=== PATIENT | female | born 1950 | race Caucasian/White ===

== ENCOUNTER 2018-05-09 00:42 | Emergency (ER) | payer MEDICARE, OTHER, SELFPAY ==
[2018-05-09 00:47] VITALS: BP 136/85; PULSE 70; RESP 20; TEMP 36.5; O2SAT 97
--- NOTE | 2018-05-09 00:53 | W.ED.GENAD ---
Discharge Plan Disposition Patient Disposition: HOME Condition: Good Discharge Details Chief Complaint: RashLesion Clinical Impression: Hives of unknown origin Primary Care Provider: Mala Morrison ED Provider: Chapito Jacques [place] Meds and New Rx's Prescriptions: New prednisone 20 mg tablet 40 mg PO DAILY Qty: 8 RF: 0 ranitidine HCl [Heartburn Relief (ranitidine)] 150 mg tablet 150 mg PO BID Qty: 20 RF: 0 Continue vitamin E 400 UNIT capsule 400 unit PO DAILY RF: 0 [id number] [Excedrin Extra Strength] 1 EACH tablet 1 ea PO HS PRNRF: 0 acetaminophen 650 MG tablet 2 tab PO BID PRNRF: 0 omeprazole 20 MG capsule,delayed release(DR/EC) 1 cap PO DAILY Qty: 90 RF: 12 cholecalciferol (vitamin D3) [Vitamin D3] 400 UNIT capsule 400 unit PO DAILY RF: 0 nystatin 60 GM powder 4 gm Topical BID Qty: 60 RF: 12 levothyroxine 50 MCG tablet 50 mcg PO DAILY Qty: 90 RF: 12 montelukast 10 MG tablet 10 mg PO DAILY Qty: 90 RF: 12 tramadol [Ultram] 50 MG tablet 50 mg PO BID PRNQty: 150 RF: 2 diphenhydramine-zinc acetate [Benadryl Extra Strength] 2-0.1 % Cream 1 appful Topical PRN PRNRF: 0 Changed diphenhydramine HCl [Benadryl] 25 mg Capsule 50 mg PO Q6H PRN PRNQty: 0 RF: 0 Discharge Instructions Instructions: Prednisone (By mouth), Urticaria (ED) Additional Instructions: Continue to use Benadryl 50 mg every 6 hours for itching. Also start Zantac 150 mg twice a day. Prednisone once a day. Follow-up with primary care next week if not better. Return to ED for fever, difficulty breathing, swallowing throat swelling, other concerns Referrals: Mala Morrison [place], [place] [Primary Care Provider] - Medical Decision Making Generalized rash that appears to be consistent with hives. No oral pharyngeal or airway involvement. No definite known changes other than possibly a water softener in her home. There is no evidence of viral syndrome. Vital signs are normal. She is already taking Benadryl which we will continue. We will add prednisone and Zantac and have her follow-up with primary care next week. Return to ED for fever, difficulty breathing, throat swelling or difficulty swallowing, other concerns HPI General Mode of arrival: ambulatory. Date/Time Provider Initiated Documentation: 05/09/18 00:53. Limitations to Documentation: no limitations. Information obtained by: patient. HPI Narrative: Patient presents to ED with generalized rash that is raised and itchy. There are no new exposures other than the addition of a water softener to her home. Rash started about 2 days ago. She has been using Benadryl. It helped for a little while. However, the rash continues to spread after initially starting on the arms. They are not painful. They are very pruritic. She otherwise feels well. There has been no fever or chills. There is no throat swelling or discomfort. There is no difficulty breathing. There is no nausea, vomiting, abdominal pain. Related Data Home Medications Medication Instructions Recorded Confirmed [id number] 1 ea PO HS PRN 10/16/12 05/09/18 [Excedrin Extra Strength] vitamin E 400 unit PO DAILY 10/16/12 05/09/18 acetaminophen 2 tab PO BID PRN 03/14/14 05/09/18 omeprazole 1 cap PO DAILY #90 tab-cap 03/19/17 05/09/18 cholecalciferol (vitamin D3) 400 unit PO DAILY 07/31/17 05/09/18 [Vitamin D3] nystatin 4 gm TOPICAL BID #60 gm 10/21/17 05/09/18 levothyroxine 50 mcg PO DAILY #90 tab-cap 10/30/17 05/09/18 montelukast 10 mg PO DAILY #90 tab-cap 10/30/17 05/09/18 tramadol [Ultram] 50 mg PO BID PRN #150 tab 02/23/18 05/09/18 diphenhydramine HCl [Benadryl] 50 mg PO Q6H PRN PRN #0 cap 05/09/18 05/09/18 diphenhydramine-zinc acetate 1 appful TOPICAL PRN PRN 05/09/18 05/09/18 [Benadryl Extra Strength] prednisone 40 mg PO DAILY #8 tab 05/09/18 ranitidine HCl [Heartburn Relief 150 mg PO BID #20 tab 05/09/18 (ranitidine)] Previous Rx's Medication Instructions Recorded nystatin 4 gm TOPICAL BID #60 gm 10/21/17 levothyroxine 50 mcg PO DAILY #90 tab-cap 10/30/17 montelukast 10 mg PO DAILY #90 tab-cap 10/30/17 diphenhydramine HCl [Benadryl] 50 mg PO Q6H PRN PRN #0 cap 05/09/18 prednisone 40 mg PO DAILY #8 tab 05/09/18 ranitidine HCl [Heartburn Relief 150 mg PO BID #20 tab 05/09/18 (ranitidine)] Allergies Allergy/AdvReac Type Severity Reaction Status Date / Time Estrogens Allergy Intermediate swollen, Unverified 05/09/18 00:49 itchy vulva house dust Allergy Intermediate SNEEZING, Unverified 05/09/18 00:49 WATERY EYES Sulfa (Sulfonamide Allergy Intermediate HIVES, Unverified 05/09/18 00:49 Antibiotics) ITCHING trimethoprim Allergy Intermediate Unverified 05/09/18 00:49 nickel Allergy Unknown SWELLING,IT Unverified 05/09/18 00:49 PARAS celecoxib [From Celebrex] AdvReac Intermediate headaches Unverified 05/09/18 00:49 oxycodone AdvReac Intermediate Headache Unverified 05/09/18 00:49 influenza virus vaccine, AdvReac body Unverified 05/09/18 00:49 specific aches, fatigue pollen AdvReac Uncoded 05/09/18 00:49 General Stated Complaint: RashLesion MILAGROS: 3 Review of Systems Constitutional Denies chills, Denies fever(s) and Denies malaise Cardiovascular Denies chest pain, Denies pedal edema and Denies dyspnea Respiratory Denies cough and Denies dyspnea Gastrointestinal Denies abdominal pain, Denies diarrhea, Denies nausea and Denies vomiting Integumentary/Breasts Reports rash PFSH Family History Mother Cerebrovascular accident Father Diabetes Personal history of malignant neoplasm Heart disease Hyperlipidemia Cerebrovascular accident Brother No problems noted. Grandfather Personal history of malignant neoplasm Grandfather No problems noted. Grandmother Personal history of malignant neoplasm Grandmother No problems noted. Son No problems noted. Daughter No problems noted. Medical History Hypothyroid (Chronic) Social History Smoking/Tobacco Use Status: Former Tobacco Use Surgical History Bladder Surgery (~1989) EGD - MAC (11/23/12) Extraction of cataract Hysterectomy, Laproscopic (~1990) Nasal septoplasty Tooth extraction Vein Stripping Exam Const General: cooperative and no acute distress Orientation: alert and oriented x3 HENDE Head: normocephalic and atraumatic Mouth: oral mucosae normal and oropharynx normal Eyes Conjunctivae: conjunctivae normal Resp Effort & Inspection: normal respiratory effort Auscultation: clear to auscultation bilaterally Cardio Rate: regular rate Rhythm: regular rhythm Heart Sounds: S1 normal and S2 normal Skin Rashes: rashes noted (Generalized maculopapular erythematous rash prominent on upper extremities and trunk less so on legs. Also involves neck and scalp. Blanches easily.) Neuro General: alert, oriented x3, no focal motor deficits and CN's II-XI intact bilaterally Extrem General: no clubbing, cyanosis or edema Course Vital Signs Temperature 97.7 F 05/09/18 00:47 Pulse 70 05/09/18 00:47 Respiratory Rate 20 05/09/18 00:47 Blood Pressure 136/85 05/09/18 00:47 Pulse Oximetry 97 05/09/18 00:47 Temperature 97.7 F 05/09/18 00:47 Temperature Source Temporal Artery Scan 05/09/18 00:47 Pulse 70 05/09/18 00:47 Respiratory Rate 20 05/09/18 00:47 Respiratory Effort Non-Labored 05/09/18 00:51 Blood Pressure 136/85 05/09/18 00:47 Pulse Oximetry 97 05/09/18 00:47 Oxygen Delivery Method Room Air 05/09/18 00:47 Oxygen Flow Rate 0 05/09/18 00:47 Pain Level 10 05/09/18 00:47
--- NOTE | 2018-05-09 01:05 | ED.GENADUL_ITS ---
Discharge Plan Disposition Patient Disposition: HOME Condition: Good Discharge Details Chief Complaint: RashLesion Clinical Impression: Hives of unknown origin Primary Care Provider: Mala Morrison ED Provider: Chapito Jacques [place] Meds and New Rx's Prescriptions: New prednisone 20 mg tablet 40 mg PO DAILY Qty: 8 RF: 0 ranitidine HCl [Heartburn Relief (ranitidine)] 150 mg tablet 150 mg PO BID Qty: 20 RF: 0 Continue vitamin E 400 UNIT capsule 400 unit PO DAILY RF: 0 [id number] [Excedrin Extra Strength] 1 EACH tablet 1 ea PO HS PRNRF: 0 acetaminophen 650 MG tablet 2 tab PO BID PRNRF: 0 omeprazole 20 MG capsule,delayed release(DR/EC) 1 cap PO DAILY Qty: 90 RF: 12 cholecalciferol (vitamin D3) [Vitamin D3] 400 UNIT capsule 400 unit PO DAILY RF: 0 nystatin 60 GM powder 4 gm Topical BID Qty: 60 RF: 12 levothyroxine 50 MCG tablet 50 mcg PO DAILY Qty: 90 RF: 12 montelukast 10 MG tablet 10 mg PO DAILY Qty: 90 RF: 12 tramadol [Ultram] 50 MG tablet 50 mg PO BID PRNQty: 150 RF: 2 diphenhydramine-zinc acetate [Benadryl Extra Strength] 2-0.1 % Cream 1 appful Topical PRN PRNRF: 0 Changed diphenhydramine HCl [Benadryl] 25 mg Capsule 50 mg PO Q6H PRN PRNQty: 0 RF: 0 Discharge Instructions Instructions: Prednisone (By mouth), Urticaria (ED) Additional Instructions: Continue to use Benadryl 50 mg every 6 hours for itching. Also start Zantac 150 mg twice a day. Prednisone once a day. Follow-up with primary care next week if not better. Return to ED for fever, difficulty breathing, swallowing throat swelling, other concerns Referrals: Mala Morrison MD, [place] [Primary Care Provider] - Medical Decision Making Generalized rash that appears to be consistent with hives. No oral pharyngeal or airway involvement. No definite known changes other than possibly a water softener in her home. There is no evidence of viral syndrome. Vital signs are normal. She is already taking Benadryl which we will continue. We will add prednisone and Zantac and have her follow-up with primary care next week. Return to ED for fever, difficulty breathing, throat swelling or difficulty swallowing, other concerns HPI General Mode of arrival: ambulatory . Date/Time Provider Initiated Documentation: 05/09/18 00:53 . Limitations to Documentation: no limitations . Information obtained by: patient . HPI Narrative: Patient presents to ED with generalized rash that is raised and itchy. There are no new exposures other than the addition of a water softener to her home. Rash started about 2 days ago. She has been using Benadryl. It helped for a little while. However, the rash continues to spread after initially starting on the arms. They are not painful. They are very pruritic. She otherwise feels well. There has been no fever or chills. There is no throat swelling or discomfort. There is no difficulty breathing. There is no nausea, vomiting, abdominal pain. Related Data Home Medications Medication Instructions Recorded Confirmed [id number] 1 ea PO HS PRN 10/16/12 05/09/18 [Excedrin Extra Strength] vitamin E 400 unit PO DAILY 10/16/12 05/09/18 acetaminophen 2 tab PO BID PRN 03/14/14 05/09/18 omeprazole 1 cap PO DAILY #90 tab-cap 03/19/17 05/09/18 cholecalciferol (vitamin D3) 400 unit PO DAILY 07/31/17 05/09/18 [Vitamin D3] nystatin 4 gm TOPICAL BID #60 gm 10/21/17 05/09/18 levothyroxine 50 mcg PO DAILY #90 tab-cap 10/30/17 05/09/18 montelukast 10 mg PO DAILY #90 tab-cap 10/30/17 05/09/18 tramadol [Ultram] 50 mg PO BID PRN #150 tab 02/23/18 05/09/18 diphenhydramine HCl [Benadryl] 50 mg PO Q6H PRN PRN #0 cap 05/09/18 05/09/18 diphenhydramine-zinc acetate 1 appful TOPICAL PRN PRN 05/09/18 05/09/18 [Benadryl Extra Strength] prednisone 40 mg PO DAILY #8 tab 05/09/18 ranitidine HCl [Heartburn Relief 150 mg PO BID #20 tab 05/09/18 (ranitidine)] Previous Rx's Medication Instructions Recorded nystatin 4 gm TOPICAL BID #60 gm 10/21/17 levothyroxine 50 mcg PO DAILY #90 tab-cap 10/30/17 montelukast 10 mg PO DAILY #90 tab-cap 10/30/17 diphenhydramine HCl [Benadryl] 50 mg PO Q6H PRN PRN #0 cap 05/09/18 prednisone 40 mg PO DAILY #8 tab 05/09/18 ranitidine HCl [Heartburn Relief 150 mg PO BID #20 tab 05/09/18 (ranitidine)] Allergies Allergy/AdvReac Type Severity Reaction Status Date / Time Estrogens Allergy Intermediate swollen, Unverified 05/09/18 00:49 itchy vulva house dust Allergy Intermediate SNEEZING, Unverified 05/09/18 00:49 WATERY EYES Sulfa (Sulfonamide Allergy Intermediate HIVES, Unverified 05/09/18 00:49 Antibiotics) ITCHING trimethoprim Allergy Intermediate Unverified 05/09/18 00:49 nickel Allergy Unknown SWELLING,IT Unverified 05/09/18 00:49 PARAS celecoxib [From Celebrex] AdvReac Intermediate headaches Unverified 05/09/18 00: 49 oxycodone AdvReac Intermediate Headache Unverified 05/09/18 00:49 influenza virus vaccine, AdvReac body Unverified 05/09/18 00:49 specific aches, fatigue pollen AdvReac Uncoded 05/09/18 00:49 General Stated Complaint: RashLesion MILAGROS: 3 Review of Systems Constitutional Denies chills, Denies fever(s) and Denies malaise Cardiovascular Denies chest pain, Denies pedal edema and Denies dyspnea Respiratory Denies cough and Denies dyspnea Gastrointestinal Denies abdominal pain, Denies diarrhea, Denies nausea and Denies vomiting Integumentary/Breasts Reports rash PFSH Family History Mother Cerebrovascular accident Father Diabetes Personal history of malignant neoplasm Heart disease Hyperlipidemia Cerebrovascular accident Brother No problems noted. Grandfather Personal history of malignant neoplasm Grandfather No problems noted. Grandmother Personal history of malignant neoplasm Grandmother No problems noted. Son No problems noted. Daughter No problems noted. Medical History Hypothyroid (Chronic) Social History Smoking/Tobacco Use Status: Former Tobacco Use Surgical History Bladder Surgery (~1989) EGD - MAC (11/23/12) Extraction of cataract Hysterectomy, Laproscopic (~1990) Nasal septoplasty Tooth extraction Vein Stripping Exam Const General: cooperative and no acute distress Orientation: alert and oriented x3 HENSD Head: normocephalic and atraumatic Mouth: oral mucosae normal and oropharynx normal Eyes Conjunctivae: conjunctivae normal Resp Effort & Inspection: normal respiratory effort Auscultation: clear to auscultation bilaterally Cardio Rate: regular rate Rhythm: regular rhythm Heart Sounds: S1 normal and S2 normal Skin Rashes: rashes noted (Generalized maculopapular erythematous rash prominent on upper extremities and trunk less so on legs. Also involves neck and scalp. Blanches easily.) Neuro General: alert, oriented x3, no focal motor deficits and CN's II-XI intact bilaterally Extrem General: no clubbing, cyanosis or edema Course Vital Signs Temperature 97.7 F 05/09/18 00:47 Pulse 70 05/09/18 00:47 Respiratory Rate 20 05/09/18 00:47 Blood Pressure 136/85 05/09/18 00:47 Pulse Oximetry 97 05/09/18 00:47 Temperature 97.7 F 05/09/18 00:47 Temperature Source Temporal Artery Scan 05/09/18 00:47 Pulse 70 05/09/18 00:47 Respiratory Rate 20 05/09/18 00:47 Respiratory Effort Non-Labored 05/09/18 00:51 Blood Pressure 136/85 05/09/18 00:47 Pulse Oximetry 97 05/09/18 00:47 Oxygen Delivery Method Room Air 05/09/18 00:47 Oxygen Flow Rate 0 05/09/18 00:47 Pain Level 10 05/09/18 00:47
[2018-05-09] MEDS: predniSONE 20 MG TAB 60 MG PO (01:15)
[2018-05-09 01:21] VITALS: BP 136/85; PULSE 70; RESP 20; TEMP 36.5; O2SAT 97
== END 2018-05-09 01:25 | disposition home or self-care (01) ==
LOC: ER 01:28
PROVIDERS: Emergency Provider Emergency Medicine; PCP Family Medicine
DX: L50.9 Urticaria, unspecified (principal)
CPT/HCPCS: 99283; J7512

== ENCOUNTER 2018-05-27 07:42 | Outpatient (CLI) | payer MEDICARE, OTHER, SELFPAY ==
[2018-05-27 13:26] LABS: ALT 19 U/L (12-78); AST 13 U/L (15-37); Albumin 3.1 g/dL (3.4-5.0); Alkaline Phosphatase 104 U/L (46-116); Anion Gap 8.1 mmol/L (3-11); BUN 12 mg/dL (7-18); Bilirubin, Total 0.5 mg/dL (0.2-1.0); CO2 28.9 mmol/L (21.0-32.0); CREATININE 0.91 mg/dL (0.55-1.02); Calcium 8.8 mg/dL (8.5-10.1); Chloride 106 mmol/L (98-107); Cholesterol 249 mg/dL (50-200); Glucose 96 mg/dL (70-100); HDL Cholesterol 71 mg/dL (40-60); LDL CHOLESTEROL 162 mg/dL (<100); Potassium 4.2 mmol/L (3.5-5.1); Sodium 143 mmol/L (136-145); Total Protein 6.1 g/dL (6.4-8.2); Triglyceride 91 mg/dL (30-150)
[2018-05-27 13:49] LABS: TSH (W/Ref FT4) 1.55 uIU/mL (0.358-3.74)
== END 2018-05-27 08:02 ==
PROVIDERS: PCP Family Medicine; Visit Provider Family Medicine
DX: E78.5 Hyperlipidemia, unspecified (principal); E03.9 Hypothyroidism, unspecified
CPT/HCPCS: 36415; 80053; 80061; 83721; 84443

== ENCOUNTER → 2019-04-05 09:34 | Outpatient (BNVA) | payer MEDICARE, OTHER, SELFPAY | PROVIDERS: PCP Family Medicine; Referring Provider Family Medicine; Visit Provider Student in an Organized Health Care Education/Training Program | DX: M65.312 Trigger thumb, left thumb (principal); M65.311 Trigger thumb, right thumb | CPT/HCPCS: 99203; 99214 ==

== ENCOUNTER 2019-04-16 14:52 | Outpatient (CLI) | payer MEDICARE, OTHER, SELFPAY ==
[2019-04-16 16:35] LABS: TSH (W/Ref FT4) 1.01 uIU/mL (0.36-3.74)
== END 2019-04-16 15:12 ==
PROVIDERS: PCP Family Medicine; Visit Provider Family Medicine
DX: E03.9 Hypothyroidism, unspecified (principal)
CPT/HCPCS: 36415; 84443

== ENCOUNTER 2019-04-21 06:29 | Day surgery (SDC) | payer MEDICARE, OTHER, SELFPAY ==
[2019-04-21 06:37] VITALS: BP 105/60; PULSE 66; RESP 16; TEMP 36.1; O2SAT 95
--- NOTE | 2019-04-21 07:15 | PDOC.DSDIS_ITS ---
Discharge Plan Disposition Patient Disposition: HOME Condition: Good Discharge Details Reason For Visit: Left Trigger Thumb Attending Provider: Ga Marr Primary Care Provider: Mala Morrison Home Meds and New Rx's Prescriptions: New ibuprofen 600 mg tablet 600 mg PO TID PRNQty: 30 RF: 3 Continued levothyroxine 50 mcg tablet 50 mcg PO DAILY Qty: 90 RF: 12 montelukast [Singulair] 10 mg tablet 10 mg PO DAILY Qty: 90 RF: 12 omeprazole 20 mg capsule,delayed release(DR/EC) 20 mg PO DAILY Qty: 90 RF: 6 tramadol [Ultram] 50 mg tablet 50 mg PO BID MDD 2 PRN (Reason: pain) Qty: 150 RF: 5 cyanocobalamin (vitamin B-12) [Vitamin B-12] 500 mcg tablet 500 mcg PO DAILY RF: 0 vitamin E 400 UNIT capsule 400 unit PO DAILY RF: 0 Excedrin Extra Strength 1 EACH tablet 1 ea PO HS PRNRF: 0 acetaminophen 650 MG tablet 2 tab PO BID PRNRF: 0 cholecalciferol (vitamin D3) [Vitamin D3] 400 UNIT capsule 400 unit PO DAILY RF: 0 nystatin 100,000 unit/gram powder 1 applic Topical BID PRN (Reason: rash) Qty: 30 RF: 2 diphenhydramine HCl [Benadryl] 25 mg Capsule 50 mg PO Q6H PRN PRNQty: 0 RF: 0 Discharge Instructions Stand Alone Forms: Justa Cramer Finger Release Referrals: Ga Marr MD [ [facility] STAFF PHYSICIAN] - Activity:: Elevate Remove Dressings/Wound Care:: 48 hours Shower/Bathe:: 48 hours Diet:: As Tolerated Discharge Orders Discharge Orders: Discharge Order (Routine); Ordered 04/21/19 Ordered By: Ga Marr DS: Diagnosis Discharge Diagnosis (1) Trigger thumb of left hand: Status: Acute
[2019-04-21] MEDS: Sodium Bicarbonate 50 MEQ/50 ML VIAL (07:39)
[2019-04-21] MEDS: Lidocaine 1% Pres-Free 5 ML VIAL (07:39)
[2019-04-21] MEDS: Bupivacaine 0.5% Pres-Free 30 ML VIAL (07:51)
--- NOTE | 2019-04-22 21:29 | W.PM.OP ---
Date of service: 04/21/19 Time of Service: 08:29 Operative Note Operative Note DATE OF PROCEDURE: 04/21/19 PRE-OP DIAGNOSIS: Left Trigger Thumb POST-OP DIAGNOSIS: same PROCEDURE: Trigger Finger Release - left trigger thumb SURGEON: Ga Marr ANESTHESIA: local ESTIMATED BLOOD LOSS: 5 PATHOLOGY: none sent COMPLICATIONS: None Patient was transported to: same day Patient's condition: stable Indications: I have seen Annie in clinic for symptoms of a trigger finger. The catching, clicking, locking, and pain limited function. The diagnosis of trigger finger was evident. The symptoms had not responded to conservative measures. I discussed trigger finger release with the patient. I reviewed the risks of the procedure to include, but not limited to, bleeding, infection, pain, stiffness, incomplete release, damage to nerves or vessels, continued catching, recurrence. Despite these risks, the patient elected to proceed. Findings: There was a tightened A1 kendall which was released. The flexor tendons were inspected and the patient was able to move the finger without any catching, clicking, or locking. Procedure Description: Annie was greeted in the preoperative holding area where the correct side was identified and marked. The consent was reviewed with the patient and signed. All questions were answered. Annie was taken back to the operating room. The patient was placed into the supine position on the operating room table with the LEFT arm on an arm board. All bony prominences were well padded. No prophylactic antibiotics were administered since this was a clean, elective hand surgical case. The LEFT arm was then prepped with Chloraprep and draped in a standard fashion with stockinette and extremity drape. A timeout to confirm correct identity, side and site, procedure, allergies, anesthesia, and medical concerns was performed. The surgical site was marked as a longitudinal incision directly over the A1 kendall of the involved digit. This was confirmed with palpation during finger flexion. This area, overlying the metacarpal head, was then anesthetized with 1% Lidocaine. The patient tolerated this well and once the anesthetic had setup, the procedure began. A longitudinal incision was made through skin only, approximately 1cm. The deep tissues were dissected bluntly. Once the A1 kendall and flexor tendons were identified the soft tissue including neurovascular structures were retracted medially and laterally. There were no crossing structures over the A1 kendall. The proximal edge of the kendall was identified and the kendall was incised with tenotomy scissors. There was a release of the tendons once this was fully released. The tendons were then removed from the wound and inspected. Excess synovium was resected. The tendons were then returned and the patient was asked to move the finger into deep flexion and back to extension. There was no recreation of the pre-operative symptoms. The hand was then once more inspected for any A0 kendall or area of possible constriction. The wound was then irrigated and the skin was closed with a 4-0 Nylon. This was dressed with gauze and a Conform dressing. The patient tolerated the procedure well and was returned to the Same Day Surgery area in a stable condition suffering no known complication.
== END 2019-04-21 08:30 | disposition home or self-care (01) ==
PROVIDERS: PCP Family Medicine; Visit Provider Student in an Organized Health Care Education/Training Program
PROC: (CPT 26055; principal; 2019-04-21 07:30)
DX: M65.312 Trigger thumb, left thumb (principal)
CPT/HCPCS: 26055

== ENCOUNTER → 2019-04-30 09:03 | Outpatient (BNVA) | payer MEDICARE, OTHER, SELFPAY | PROVIDERS: PCP Family Medicine; Referring Provider Family Medicine; Visit Provider Student in an Organized Health Care Education/Training Program | DX: Z47.89 Encounter for other orthopedic aftercare (principal); M65.311 Trigger thumb, right thumb; M65.312 Trigger thumb, left thumb ==

== ENCOUNTER 2019-05-04 11:47 | Day surgery (SDC) | payer MEDICARE, OTHER, SELFPAY ==
[2019-05-04 11:50] VITALS: BP 132/78; PULSE 64; RESP 16; TEMP 36.5; O2SAT 95
--- NOTE | 2019-05-04 12:25 | W.PM.DSUDISC ---
Discharge Plan Disposition Patient Disposition: HOME Condition: Good Discharge Details Reason For Visit: R Trigger Thumb Attending Provider: Ga Marr Primary Care Provider: Mala Morrison Home Meds and New Rx's Prescriptions: Continued levothyroxine 50 mcg tablet 50 mcg PO DAILY Qty: 90 RF: 12 montelukast [Singulair] 10 mg tablet 10 mg PO DAILY Qty: 90 RF: 12 omeprazole 20 mg capsule,delayed release(DR/EC) 20 mg PO DAILY Qty: 90 RF: 6 cyanocobalamin (vitamin B-12) [Vitamin B-12] 500 mcg tablet 500 mcg PO DAILY RF: 0 tramadol [Ultram] 50 mg tablet 50 mg PO BID MDD 2 PRN (Reason: pain) Qty: 150 RF: 5 vitamin E 400 UNIT capsule 400 unit PO DAILY RF: 0 Excedrin Extra Strength 1 EACH tablet 1 ea PO HS PRNRF: 0 acetaminophen 650 MG tablet 2 tab PO BID PRNRF: 0 cholecalciferol (vitamin D3) [Vitamin D3] 400 UNIT capsule 400 unit PO DAILY RF: 0 nystatin 100,000 unit/gram powder 1 applic Topical BID PRN (Reason: rash) Qty: 30 RF: 2 ibuprofen 600 mg tablet 600 mg PO TID PRNQty: 30 RF: 3 chlorpheniramine maleate 4 mg Tablet BID RF: 0 aspirin [Aspir-81] 81 mg Tablet,Delayed Release (Dr/Ec) RF: 0 cyanocobalamin (vitamin B-12) [Vitamin B-12] 500 mcg Tablet RF: 0 cholecalciferol (vitamin D3) [Vitamin D3] 400 unit Capsule RF: 0 diphenhydramine HCl [Benadryl] 25 mg Capsule 50 mg PO Q6H PRN PRNQty: 0 RF: 0 Discharge Instructions Stand Alone Forms: Annaa Shoaib Finger Release Referrals: Ga Marr MD [ [facility] STAFF PHYSICIAN] - Activity:: Elevate Remove Dressings/Wound Care:: 48 hours Shower/Bathe:: 48 hours Diet:: As Tolerated Discharge Orders Discharge Orders: Discharge Order (Routine); Ordered 05/04/19 Ordered By: Ga Marr DS: Diagnosis Discharge Diagnosis (1) Trigger thumb of right hand: Status: Acute
[2019-05-04] MEDS: Bupivacaine 0.5% Pres-Free 30 ML VIAL (12:56)
[2019-05-04] MEDS: Lidocaine 1% Multi-Dose 50 ML VIAL (12:57)
--- NOTE | 2019-05-04 16:55 | W.PM.OP ---
Date of service: 05/04/19 Time of Service: 10:55 Operative Note Operative Note DATE OF PROCEDURE: 05/04/19 PRE-OP DIAGNOSIS: Right trigger thumb POST-OP DIAGNOSIS: same PROCEDURE: Trigger Finger Release -right thumb SURGEON: Ga Marr ANESTHESIA: local PATHOLOGY: none sent COMPLICATIONS: None Patient was transported to: same day Patient's condition: stable Indications: I have seen Annie in clinic for symptoms of a right trigger thumb. The catching, clicking, locking, and pain limited function. The diagnosis of trigger finger was evident. The symptoms had not responded to conservative measures. I discussed trigger finger release with the patient. I reviewed the risks of the procedure to include, but not limited to, bleeding, infection, pain, stiffness, incomplete release, damage to nerves or vessels, continued catching, recurrence. Despite these risks, the patient elected to proceed. Findings: There was a tightened A1 kendall which was released. The flexor tendons were inspected and the patient was able to move the finger without any catching, clicking, or locking. Procedure Description: Annie was greeted in the preoperative holding area where the correct side was identified and marked. The consent was reviewed with the patient and signed. All questions were answered. Annie was taken back to the operating room. The patient was placed into the supine position on the operating room table with the right arm on an arm board. All bony prominences were well padded. No prophylactic antibiotics were administered since this was a clean, elective hand surgical case. The right arm was then prepped with Chloraprep and draped in a standard fashion with stockinette and extremity drape. A timeout to confirm correct identity, side and site, procedure, allergies, anesthesia, and medical concerns was performed. The surgical site was marked as a longitudinal incision directly over the A1 kendall of the involved digit. This was confirmed with palpation during finger flexion. This area, overlying the metacarpal head, was then anesthetized with 1% Lidocaine. The patient tolerated this well and once the anesthetic had setup, the procedure began. A longitudinal incision was made through skin only, approximately 1cm. The deep tissues were dissected bluntly. Once the A1 kendall and flexor tendons were identified the soft tissue including neurovascular structures were retracted medially and laterally. There were no crossing structures over the A1 kendall. The proximal edge of the kendall was identified and the kendall was incised with tenotomy scissors. There was a release of the tendons once this was fully released. The tendons were then removed from the wound and inspected. Excess synovium was resected. The tendons were then returned and the patient was asked to move the finger into deep flexion and back to extension. There was no recreation of the pre-operative symptoms. The hand was then once more inspected for any A0 kendall or area of possible constriction. The wound was then irrigated and the skin was closed with a 4-0 Nylon. This was dressed with gauze and a Conform dressing. The patient tolerated the procedure well and was returned to the Same Day Surgery area in a stable condition suffering no known complication.
== END 2019-05-04 13:19 | disposition home or self-care (01) ==
PROVIDERS: PCP Family Medicine; Visit Provider Student in an Organized Health Care Education/Training Program
PROC: (CPT 26055; principal; 2019-05-04 14:00)
DX: M65.311 Trigger thumb, right thumb (principal)
CPT/HCPCS: 26055

== ENCOUNTER → 2019-05-14 09:22 | Outpatient (BNVA) | payer MEDICARE, OTHER, SELFPAY | PROVIDERS: PCP Family Medicine; Referring Provider Family Medicine; Visit Provider Student in an Organized Health Care Education/Training Program | DX: Z47.89 Encounter for other orthopedic aftercare (principal); M65.311 Trigger thumb, right thumb ==

== ENCOUNTER 2019-09-22 01:19 | Outpatient (CLI) | payer MEDICARE, OTHER, SELFPAY ==
--- NOTE | 2019-09-22 12:03 | DI.MAMMO_ITS ---
EXAM: MG MAMMO SCREENING CLINICAL HISTORY: screening, Z12.39. TECHNIQUE: Full field digital CC and MLO mammographic images were obtained with 3D tomosynthesis and utilizing computer aided detection (CAD). COMPARISON: . 2010 through 2016 FINDINGS: Breast Density - Category B - Scattered areas of fibroglandular density Masses/Architectural Distortion: None seen. Microcalcifications: No suspicious pleomorphic-type calcifications are seen. Skin Thickening/Nipple Retraction: None. Axilla: Unremarkable. IMPRESSION: 1. BI-RADS category 1, negative. No significant interval change with no specific features of maligna ncy noted. 2. Unless there is more urgent need, screening mammography is recommended, as per [employer] guidelines. A negative radiographic report should not delay biopsy if a dominant or clinically suspicious mass is present. Up to ten percent of cancers are not identified on mammography. A negative report may reinforce clinical impression. Adenosis and dense breasts may obscure an underlying neoplasm. False positive reports average 6 to 10%. Patient will receive a letter notifying them of these results.
== END 2019-09-22 01:39 ==
PROVIDERS: PCP Family Medicine
DX: Z12.31 Encounter for screening mammogram for malignant neoplasm of breast (principal)
CPT/HCPCS: 77063; 77067

== ENCOUNTER 2020-12-27 00:48 | Outpatient (CLI) | payer MEDICARE, OTHER, SELFPAY ==
--- NOTE | 2020-12-27 12:46 | DI.MAMMO_ITS ---
Exam(s) MAMMO SCREENING EXAM: MAMMO SCREENING CLINICAL HISTORY: screening,Z12.39. TECHNIQUE: Bilateral full field digital CC and MLO mammographic images were obtained with 3D tomosyn thesis and utilizing computer aided detection (CAD). COMPARISON: Prior mammograms dating back to 2011, the most recent being September 2019. FINDINGS: There are no new spiculated masses nor malignant appearing microcalcification groups. Benign microcalcifications are again noted in both breasts. There is no significant architectural distortion nor skin thickening-retraction. IMPRESSION: No radiographic evidence of malignancy. BI-RADS Category 1 - Negative Breast Density - Category B - Scattered areas of fibroglandular density Breast density Category C or D implies that the patient has dense breast tissue. Dense breast tissue can make it harder to find cancer on a mammogram. Dense breast tissue is also associated with an incr eased risk of breast cancer. This information about the result of the mammogram report was provided to the patient to raise their awareness. Use this report when you speak with the patient about their risks for breast cancer, which includes their family history. At that time, you may recommend additional screening tests (Ultrasoun d or MRI) as these tests may add significant information. A negative radiographic report should not delay biopsy if a dominant or clinically suspicious mass is present. Up to ten percent of cancers are not identified on mammography. A negative report may reinforce clinical impression. Adenosis and dense breasts may obscure an underlying neoplasm. False positive reports average 6 to 10%. Patient will receive a letter notifying them of these results.
== END 2020-12-27 01:08 ==
PROVIDERS: PCP Family Medicine; Visit Provider Family Medicine
DX: Z12.31 Encounter for screening mammogram for malignant neoplasm of breast (principal)
CPT/HCPCS: 77063; 77067

== ENCOUNTER 2021-01-18 02:57 | Outpatient (CLI) | payer MEDICARE, OTHER, SELFPAY ==
[2021-01-18 11:33] LABS: ALT 19 U/L (14-59); AST 12 U/L (15-37); Albumin 3.4 g/dL (3.4-5.0); Alkaline Phosphatase 94 U/L (46-116); Anion Gap 9.3 mmol/L (3-11); BUN 20 mg/dL (7-18); Bilirubin, Total 0.5 mg/dL (0.2-1.0); CO2 28.7 mmol/L (21.0-32.0); CREATININE 1.1 mg/dL (0.55-1.02); Calcium 8.9 mg/dL (8.5-10.1); Chloride 106 mmol/L (98-107); Estimated GFR 48.96 (mL/min/1.73m2); Glucose 76 mg/dL (74-106); Potassium 3.9 mmol/L (3.5-5.1); Sodium 144 mmol/L (136-145); TSH (W/Ref FT4) 1.32 uIU/mL (0.36-3.74); Total Protein 6.4 g/dL (6.4-8.2)
== END 2021-01-18 02:58 | disposition home or self-care (01) ==
LOC: LBO 02:57
PROVIDERS: PCP Family Medicine; Visit Provider Family Medicine
DX: E03.9 Hypothyroidism, unspecified (principal); M79.641 Pain in right hand; M79.642 Pain in left hand; G25.81 Restless legs syndrome; E78.5 Hyperlipidemia, unspecified
CPT/HCPCS: 36415; 80053; 84443

== ENCOUNTER 2021-08-17 00:17 | Outpatient (CLI) | payer MEDICARE, OTHER, SELFPAY ==
--- NOTE | 2021-08-17 07:00 | DI.RAD_ITS ---
Exam(s) XR SHOULDER LT COMPLETE 2+V EXAM: XR SHOULDER LT COMPLETE 2+V CLINICAL HISTORY: L shoulder pain, no trauma,m25.512. TECHNIQUE: 2D digital imaging was performed of the left shoulder. Five images were obtained. AP, G rashey, Y-view and axillary views were obtained. COMPARISON: No exams were available for comparison FINDINGS: BONES: No acute fracture is present. No bony destructive lesion is seen. Mild subchondral cystic mcnamara ges seen in the greater tuberosity. JOINTS: No dislocation present. Mild degenerative changes at the glenohumeral joint with joint space narrowing and periarticular spurring. SOFT TISSUE: Normal. IMPRESSION: Mild degenerative changes of the left shoulder. DATA REPOSITORY: RADIATION DOSE DELIVERED:
== END 2021-08-17 00:37 ==
PROVIDERS: PCP Family Medicine; Visit Provider Family Medicine
DX: M25.512 Pain in left shoulder (principal); M19.012 Primary osteoarthritis, left shoulder
CPT/HCPCS: 73030

== ENCOUNTER → 2022-01-29 00:10 | Outpatient (CLI) | payer MEDICARE, OTHER, SELFPAY ==
--- NOTE | 2022-01-29 08:15 | DI.US_ITS ---
Exam(s) US LOWER EXTREMITY VENOUS LT EXAM: US LOWER EXTREMITY VENOUS LT CLINICAL HISTORY: r/o dvt, PAIN LT LOWER LEG, M79.662. TECHNIQUE: Lower extremity venous ultrasound performed using grayscale, color-flow, and spectral Do ppler analysis. COMPARISON: No exams were available for comparison FINDINGS: The common femoral, femoral and popliteal veins demonstrate normal compressibility, augmentation, and color Doppler. The posterior tibial veins are patent. No saphenous vein thrombosis or other superfi cial venous thrombosis is seen. No hematoma or Guillen's cyst is seen. IMPRESSION: Negative lower extremity ultrasound. No evidence of DVT. DATA REPOSITORY:
--- NOTE | 2022-01-29 14:59 | DI.RAD_ITS ---
Exam(s) XR KNEE LT 3V AP,LAT,ADRIEL EXAM: XR KNEE LT 3V AP,LAT,ADRIEL CLINICAL HISTORY: pain knee POSTERIOR, M25.562. TECHNIQUE: 2D digital imaging was performed. Three views. COMPARISON: No exams were available for comparison FINDINGS: BONES: No acute fracture is present. No bony destructive lesion is seen. Chronic appearing calcifica tion medial to the medial femoral condyle, likely ligamentous calcification. Mild irregularity at th e articular aspect of the patella. JOINTS: Femoral tibial joint spaces are well maintained. No joint effusion is seen. SOFT TISSUE: Anterior soft tissue defect. IMPRESSION: Mild patellofemoral degenerative changes. DATA REPOSITORY: RADIATION DOSE DELIVERED:
== END ==
PROVIDERS: PCP Family Medicine; Visit Provider Physician Assistant
DX: M25.562 Pain in left knee (principal); M79.662 Pain in left lower leg; M22.8X2 Other disorders of patella, left knee
CPT/HCPCS: 73562; 93971

== ENCOUNTER 2022-09-25 01:49 | Outpatient (CLI) | payer MEDICARE, OTHER, SELFPAY ==
[2022-09-25 12:42] LABS: ALT 11 U/L (14-59); AST 12 U/L (15-37); Albumin 3.3 g/dL (3.4-5.0); Alkaline Phosphatase 89 U/L (46-116); Anion Gap 7.2 mmol/L (3-11); BUN 22 mg/dL (7-18); Bilirubin, Total 0.3 mg/dL (0.2-1.0); CO2 30.8 mmol/L (21.0-32.0); Calcium 8.8 mg/dL (8.5-10.1); Chloride 105 mmol/L (98-107); Estimated GFR 59.49 (mL/min/1.73m2); Glucose 105 mg/dL (74-106); Potassium 3.7 mmol/L (3.5-5.1); Sodium 143 mmol/L (136-145); TSH (W/Ref FT4) 1.24 uIU/mL (0.36-3.74); Total Protein 6.7 g/dL (6.4-8.2)
== END 2022-09-25 01:50 | disposition home or self-care (01) ==
LOC: LBO 01:49
PROVIDERS: PCP Family Medicine; Visit Provider Family Medicine
DX: E03.9 Hypothyroidism, unspecified (principal); E78.5 Hyperlipidemia, unspecified
CPT/HCPCS: 36415; 80053; 84443

== ENCOUNTER 2022-11-26 08:51 | Outpatient (CLI) | payer MEDICARE, OTHER, SELFPAY ==
--- NOTE | 2022-11-26 08:45 | RT.EKG_ITS ---
APPROVED REPORT Exam: Resting ECG Reason for Exam: Eye surgery Patient Location: O HR:66 bpm ECG Measurements Heart Rate 66 AXIS CA 153 P 6 QRSd 81 QRS -26 QT 394 T -17 QTc 413 Conclusion Sinus rhythm...normal P axis, V-rate 50- 99 Atrial premature beats Borderline left axis deviation...QRS axis (-15,-29) Borderline T abnormalities, anterior leads...T flat or neg, V2-V4
== END 2022-11-26 08:52 | disposition home or self-care (01) ==
LOC: DI.CM 08:52
PROVIDERS: PCP Family Medicine; Visit Provider Family Medicine
DX: Z01.818 Encounter for other preprocedural examination (principal)
CPT/HCPCS: 93010

== ENCOUNTER 2023-02-28 00:12 | Outpatient (CLI) | payer MEDICARE, SELFPAY ==
--- NOTE | 2023-02-28 08:00 | DI.MAMMO_ITS ---
Exam(s) MAMMO SCREENING EXAM: MAMMO SCREENING CLINICAL HISTORY: screening,Z12.39 TECHNIQUE: Mammograms were interpreted according to the usual protocol including computer analysis w [employer] CAD system, tomosynthesis and C-view imaging. COMPARISON: 2013 through 2020 FINDINGS: The breasts are composed of scattered fibroglandular densities, Breast Density category B. No suspicious masses or suspicious microcalcifications are seen. No skin thickening or abnormal axillary lymph nodes are seen. There has been no significant change from prior exams. IMPRESSION: BI-RADS Category 1, Negative mammogram Yearly screening mammography is recommended. Breast Density - Category B, scattered fibroglandular densities. A negative radiographic report should not delay biopsy if a dominant or clinically suspicious mass is present. Up to ten percent of cancers are not identified on mammography. A negative report may reinforce clinical impression. Adenosis and dense breasts may obscure an underlying neoplasm. False positive reports average 6 to 10%. Patient will receive a letter notifying them of these results.
--- NOTE | 2023-02-28 14:17 | DI.DEXA_ITS ---
Exam(s) XR DEXA BONE DENSITY W/WO SHONA EXAM: XR DEXA BONE DENSITY W/WO SHONA CLINICAL HISTORY: SCREENING FOR OSTEOPOROSIS IN POSTMENOPAUSAL WOMAN,Z78.0 TECHNIQUE: [employer] Horizon C densitometer analysis of left hip, lumbar spine and left forearm. Lat eral survey image of the thoracic and lumbar spine. COMPARISON: Two thousand four FINDINGS: Lateral view of the thoracic and lumbar spine shows no evidence of compression fractures. Bone mineral density measurements of the lumbar spine correspond to a total T-score of -0.4, in the normal range. This is not significantly changed from 2004. Bone mineral density measurements of the left hip correspond to a total T-score of -0.5. The femora l neck T-score is -1.4, in the osteopenic range. This represents a 7.3 percent decrease compared wi 2003.. Theleft forearm bone mineral density measurements correspond to a T-score of the distal 3rd of -0.3, in the normal range. Forearm was not analyzed in 2003.. IMPRESSION: Stable normal bone mineral density of the lumbar spine. Normal bone mineral density of the left fore arm. Mild osteopenia of the left hip.
== END 2023-02-28 00:32 ==
LOC: DI 00:12
PROVIDERS: PCP Family Medicine; Visit Provider Family Medicine
DX: Z12.31 Encounter for screening mammogram for malignant neoplasm of breast (principal); Z78.0 Asymptomatic menopausal state; M81.0 Age-related osteoporosis without current pathological fracture; Z13.820 Encounter for screening for osteoporosis
CPT/HCPCS: 77063; 77067; 77080

== ENCOUNTER → 2023-08-13 09:55 | Outpatient (BNVA) | payer MEDICARE, SELFPAY | PROVIDERS: PCP Family Medicine; Referring Provider Family Medicine; Visit Provider Podiatrist | DX: B35.1 Tinea unguium (principal); L60.3 Nail dystrophy; M79.675 Pain in left toe(s); M79.674 Pain in right toe(s); L65.9 Nonscarring hair loss, unspecified; R23.4 Changes in skin texture; L60.8 Other nail disorders | CPT/HCPCS: 11721 ==

== ENCOUNTER → 2023-11-12 10:12 | Outpatient (BNVA) | payer MEDICARE, SELFPAY | PROVIDERS: PCP Family Medicine; Referring Provider Family Medicine; Visit Provider Podiatrist | DX: B35.1 Tinea unguium (principal); L60.3 Nail dystrophy; B35.3 Tinea pedis; M79.671 Pain in right foot; M79.672 Pain in left foot | CPT/HCPCS: 11721 ==

== ENCOUNTER 2024-01-20 05:12 | Outpatient (CLI) | payer MEDICARE, SELFPAY ==
[2024-01-20 13:21] LABS: ALT 21 U/L (14-59); AST 13 U/L (15-37); Albumin 3.5 g/dL (3.4-5.0); Alkaline Phosphatase 86 U/L (46-116); Anion Gap 10.9 mmol/L (3-11); BUN 18 mg/dL (7-18); Bilirubin, Total 0.5 mg/dL (0.2-1.0); CO2 27.1 mmol/L (21.0-32.0); Calcium 9.1 mg/dL (8.5-10.1); Calculated LDL 146 mg/dL (<100); Chloride 103 mmol/L (98-107); Cholesterol 254 mg/dL (<200); Estimated GFR 59.12 (mL/min/1.73m2); Glucose 93 mg/dL (74-106); HDL Cholesterol 91 mg/dL (40-60); Sodium 141 mmol/L (136-145); TSH (W/Ref FT4) 2.15 uIU/mL (0.36-3.74); Triglyceride 87 mg/dL (<150)
== END 2024-01-20 05:13 | disposition home or self-care (01) ==
LOC: LOS 05:12
PROVIDERS: PCP Family Medicine; Visit Provider Family Medicine
DX: E03.9 Hypothyroidism, unspecified (principal); I10 Essential (primary) hypertension
CPT/HCPCS: 36415; 80053; 80061; 84443

== ENCOUNTER → 2024-02-11 10:19 | Outpatient (BNVA) | payer MEDICARE, SELFPAY | PROVIDERS: PCP Family Medicine; Referring Provider Family Medicine; Visit Provider Podiatrist | DX: B35.1 Tinea unguium (principal); L60.3 Nail dystrophy; B35.3 Tinea pedis; M79.675 Pain in left toe(s); M79.674 Pain in right toe(s); G89.4 Chronic pain syndrome; I80.9 Phlebitis and thrombophlebitis of unspecified site; G25.81 Restless legs syndrome; I83.91 Asymptomatic varicose veins of right lower extremity; I83.92 Asymptomatic varicose veins of left lower extremity; R60.0 Localized edema; R20.8 Other disturbances of skin sensation | CPT/HCPCS: 11721 ==

== ENCOUNTER 2024-04-06 03:01 | Outpatient (CLI) | payer MEDICARE, SELFPAY ==
[2024-04-06 23:59] LABS: Hepatitis C Ab w Rflx HCV PCR Negative (Negative)
== END 2024-04-06 03:02 | disposition home or self-care (01) ==
LOC: LBO 03:02
PROVIDERS: PCP Family Medicine; Visit Provider Family Medicine
DX: M25.561 Pain in right knee; M54.50 Low back pain, unspecified; M25.562 Pain in left knee
CPT/HCPCS: 36415; 86803

== ENCOUNTER → 2024-04-14 10:31 | Outpatient (BNVA) | payer MEDICARE, SELFPAY | PROVIDERS: PCP Family Medicine; Referring Provider Family Medicine; Visit Provider Podiatrist | DX: L60.3 Nail dystrophy (principal); M79.674 Pain in right toe(s); B35.1 Tinea unguium; L60.2 Onychogryphosis; R20.2 Paresthesia of skin; R60.0 Localized edema; R20.8 Other disturbances of skin sensation | CPT/HCPCS: 11719; 11720 ==

== ENCOUNTER 2024-05-18 00:42 | Outpatient (CLI) | payer MEDICARE, SELFPAY | END 2024-05-18 01:02 | LOC: DI 00:42 | PROVIDERS: PCP Family Medicine; Visit Provider Family Medicine | DX: Z12.31 Encounter for screening mammogram for malignant neoplasm of breast (principal) | CPT/HCPCS: 77063; 77067 ==

== ENCOUNTER → 2024-06-23 10:27 | Outpatient (BNVA) | payer MEDICARE, SELFPAY | PROVIDERS: PCP Family Medicine; Referring Provider Family Medicine; Visit Provider Podiatrist | DX: L60.3 Nail dystrophy (principal); M79.674 Pain in right toe(s); M79.675 Pain in left toe(s); B35.1 Tinea unguium; B35.3 Tinea pedis; I83.90 Asymptomatic varicose veins of unspecified lower extremity | CPT/HCPCS: 11719; 11720 ==

== ENCOUNTER 2024-07-12 16:02 | Outpatient (CLI) | payer MEDICARE, SELFPAY ==
--- NOTE | 2024-07-12 15:10 | DI.RAD_ITS ---
Exam(s) XR KNEE LT 4V AP,LAT,ADRIEL,PAT EXAM: XR KNEE LT 4V AP,LAT,ADRIEL,PAT CLINICAL HISTORY: LEFT KNEE PAIN. TECHNIQUE: 2D digital imaging was performed. Three views. COMPARISON: CR XR KNEE LT 3V AP,LAT,ADRIEL from 01/29/2022 FINDINGS: BONES: No acute fracture is present. No bony destructive lesion is seen. JOINTS: The knee is normally aligned. No joint effusion is seen. Mild narrowing of the lateral pendleton llofemoral joint space. Slight cortical irregularity again visible near the upper pole. Mild narrow ing of the lateral femoral tibial joint space. SOFT TISSUE: Calcification again noted adjacent to the medial femoral condyle. IMPRESSION: Mild degenerative changes. DATA REPOSITORY: RADIATION DOSE DELIVERED:
== END 2024-07-12 16:03 | disposition home or self-care (01) ==
LOC: DIORS 16:03
PROVIDERS: PCP Family Medicine; Referring Provider Family Medicine; Visit Provider Physician Assistant
DX: M25.562 Pain in left knee (principal); M17.12 Unilateral primary osteoarthritis, left knee
CPT/HCPCS: 20610; 99214; J1010; 73564

== ENCOUNTER → 2024-09-01 09:24 | Outpatient (BNVA) | payer MEDICARE, SELFPAY | PROVIDERS: PCP Family Medicine; Referring Provider Family Medicine; Visit Provider Podiatrist | DX: B35.1 Tinea unguium (principal); L60.3 Nail dystrophy; B35.3 Tinea pedis; M79.674 Pain in right toe(s); M79.675 Pain in left toe(s); I83.93 Asymptomatic varicose veins of bilateral lower extremities; R09.89 Other specified symptoms and signs involving the circulatory and respiratory systems; L65.9 Nonscarring hair loss, unspecified; R20.8 Other disturbances of skin sensation; R23.8 Other skin changes; L60.8 Other nail disorders; R60.0 Localized edema; L60.2 Onychogryphosis; R20.2 Paresthesia of skin | CPT/HCPCS: 11719; 11720 ==

== ENCOUNTER → 2024-09-06 14:02 | Outpatient (BNVA) | payer MEDICARE, SELFPAY | PROVIDERS: PCP Family Medicine; Referring Provider Family Medicine; Visit Provider Student in an Organized Health Care Education/Training Program | DX: M23.92 Unspecified internal derangement of left knee (principal); M17.12 Unilateral primary osteoarthritis, left knee | CPT/HCPCS: 99213 ==

== ENCOUNTER 2024-09-28 01:24 | Outpatient (CLI) | payer MEDICARE, SELFPAY ==
--- NOTE | 2024-09-28 06:30 | DI.MRI_ITS ---
Exam(s) MR LOWER JOINT LT WO EXAM: MR LOWER JOINT LT WO CLINICAL HISTORY: LT KNEE PAIN,INTERNAL DERANGEMENT, M25.562,M23.92. TECHNIQUE: Multiplanar multisequence MRI was performed. COMPARISON: CR XR KNEE LT 4V AP,LAT,ADRIEL,PAT from 07/12/2024 FINDINGS: BONES: There is no fracture or contusion pattern. JOINTS: There is thinning of the articular cartilage in the lateral femoral tibial joint with near co mplete loss of cartilage over the lateral tibial plateau. Subchondral edema is seen in the lateral f emoral condyle in the lateral tibial plateau. There is also thinning of the articular cartilage over lying the lateral patellar facet. There is underlying subchondral edema. There is a moderate joint effusion. There is a thickened patella plica. TENDONS: Extensor mechanism: Unremarkable. Medial retinaculum: Unremarkable. Lateral retinaculum: Unremarkable. Popliteus: Unremarkable. MUSCLES: Unremarkable. MENISCI: There is degenerative signal seen in the medial patella without evidence of a tear. There i s a tear of the body and anterior horn of the lateral meniscus. There also appears to be displacemen t of meniscal tissue posteriorly. SOFT TISSUES: There is mild edema seen in the soft tissues anterior to the patella. LIGAMENTS: Anterior Cruciate: Unremarkable. Posterior Cruciate: Unremarkable. Medial Collateral:Unremarkable. Lateral Collateral: Unremarkable. OTHER: IMPRESSION: 1. Tear of the anterior horn and body of the lateral meniscus with displacement of meniscal material posteriorly. 2. No evidence of a ligament tear. 3. 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 4. Thickened patellar plica. 5. Moderate joint effusion. DATA REPOSITORY:
== END 2024-09-28 01:44 ==
LOC: DI 01:24
PROVIDERS: PCP Family Medicine; Visit Provider Student in an Organized Health Care Education/Training Program
DX: M23.242 Derangement of anterior horn of lateral meniscus due to old tear or injury, left knee (principal)
CPT/HCPCS: 73721

== ENCOUNTER → 2024-09-30 14:33 | Outpatient (BNVA) | payer MEDICARE, SELFPAY | PROVIDERS: PCP Family Medicine; Referring Provider Family Medicine; Visit Provider Student in an Organized Health Care Education/Training Program | DX: M17.12 Unilateral primary osteoarthritis, left knee (principal) | CPT/HCPCS: 99213 ==

== ENCOUNTER → 2024-11-10 09:26 | Outpatient (BNVA) | payer MEDICARE, SELFPAY | PROVIDERS: PCP Family Medicine; Referring Provider Family Medicine; Visit Provider Podiatrist | DX: L60.3 Nail dystrophy (principal); M79.674 Pain in right toe(s); M79.675 Pain in left toe(s); I73.89 Other specified peripheral vascular diseases; B35.1 Tinea unguium; B35.3 Tinea pedis; L60.2 Onychogryphosis; L60.8 Other nail disorders; R23.8 Other skin changes; L65.9 Nonscarring hair loss, unspecified; R60.0 Localized edema; R20.8 Other disturbances of skin sensation | CPT/HCPCS: 11719; 11720 ==

== ENCOUNTER → 2024-11-25 14:24 | Outpatient (BNVA) | payer MEDICARE, SELFPAY | PROVIDERS: PCP Family Medicine; Referring Provider Family Medicine; Visit Provider Student in an Organized Health Care Education/Training Program | DX: M23.92 Unspecified internal derangement of left knee (principal) | CPT/HCPCS: 99213 ==

== ENCOUNTER → 2025-01-06 14:36 | Outpatient (BNVA) | payer MEDICARE, SELFPAY | PROVIDERS: PCP Family Medicine; Referring Provider Family Medicine; Visit Provider Physician Assistant | DX: M17.12 Unilateral primary osteoarthritis, left knee (principal); M23.92 Unspecified internal derangement of left knee | CPT/HCPCS: 20610; J1010 ==

== ENCOUNTER → 2025-01-31 13:16 | Outpatient (BNVA) | payer MEDICARE, SELFPAY | PROVIDERS: PCP Family Medicine; Referring Provider Family Medicine; Visit Provider Podiatrist | DX: L60.3 Nail dystrophy (principal); B35.1 Tinea unguium; B35.3 Tinea pedis; I83.90 Asymptomatic varicose veins of unspecified lower extremity; M79.674 Pain in right toe(s); I73.89 Other specified peripheral vascular diseases; R60.0 Localized edema; R09.89 Other specified symptoms and signs involving the circulatory and respiratory systems; L65.9 Nonscarring hair loss, unspecified; R20.8 Other disturbances of skin sensation; R23.8 Other skin changes; L60.2 Onychogryphosis; L60.8 Other nail disorders; L84 Corns and callosities; L85.8 Other specified epidermal thickening | CPT/HCPCS: 11719; 11720 ==

== ENCOUNTER 2025-02-28 01:43 | Outpatient (CLI) | payer MEDICARE, SELFPAY ==
[2025-02-28 08:56] LABS: ALT 20 U/L (14-59); AST 15 U/L (15-37); Albumin 3.4 g/dL (3.4-5.0); Alkaline Phosphatase 88 U/L (46-116); Anion Gap 9.2 mmol/L (3-11); BUN 21 mg/dL (7-18); Bilirubin, Total 0.4 mg/dL (0.2-1.0); CO2 27.8 mmol/L (21.0-32.0); Calcium 9.2 mg/dL (8.5-10.1); Chloride 104 mmol/L (98-107); Estimated GFR 66.67 (mL/min/1.73m2); Glucose 98 mg/dL (74-106); Potassium 4.1 mmol/L (3.5-5.1); Sodium 141 mmol/L (136-145); TSH (W/Ref FT4) 3.22 uIU/mL (0.36-3.74); Total Protein 6.8 g/dL (6.4-8.2)
== END 2025-02-28 01:44 | disposition home or self-care (01) ==
LOC: LBO 01:44
PROVIDERS: PCP Family Medicine; Visit Provider Family Medicine
DX: E03.9 Hypothyroidism, unspecified (principal); I10 Essential (primary) hypertension
CPT/HCPCS: 36415; 80053; 84443

== ENCOUNTER 2025-03-08 01:26 | Outpatient (CLI) | payer MEDICARE, SELFPAY ==
--- NOTE | 2025-03-08 07:15 | DI.RAD_ITS ---
Exam(s) XR LUMBAR SPINE COMPLETE EXAM: XR LUMBAR SPINE COMPLETE CLINICAL HISTORY: LBP, lumbar pain, M54.50. TECHNIQUE: 2D digital imaging was performed. Five views. COMPARISON: CR BARIUM SWALLOW W PA LAT CXR from 11/06/2012 CR XR DEXA BONE DENSITY W/WO SHONA from 02/28/2023 FINDINGS: BONES: No fracture or destructive lesion. Vertebral body heights are maintained. There are facet degenerative changes, greatest at L4-5 and L5-S1. DISKS: There is severe narrowing of the L1-2 disc. There is mild narrowing of the L4-5 disc space. Intervertebral disc spaces are maintained. ALIGNMENT: There is a mild levo rotoscoliosis. SOFT TISSUE: Calcification in the abdominal aorta which is normal in diameter. IMPRESSION: Degenerative changes and mild scoliosis. DATA REPOSITORY: RADIATION DOSE DELIVERED:
== END 2025-03-08 01:46 ==
LOC: DI 01:26
PROVIDERS: PCP Family Medicine; Visit Provider Family Medicine
DX: M41.86 Other forms of scoliosis, lumbar region (principal)
CPT/HCPCS: 72110

== ENCOUNTER → 2025-04-18 10:50 | Outpatient (BNVA) | payer MEDICARE, SELFPAY | PROVIDERS: PCP Family Medicine; Referring Provider Family Medicine; Visit Provider Podiatrist | DX: L60.3 Nail dystrophy (principal); B35.1 Tinea unguium; M79.674 Pain in right toe(s); B35.3 Tinea pedis; I73.89 Other specified peripheral vascular diseases; I83.93 Asymptomatic varicose veins of bilateral lower extremities; R09.89 Other specified symptoms and signs involving the circulatory and respiratory systems; L65.9 Nonscarring hair loss, unspecified; R20.8 Other disturbances of skin sensation; R23.8 Other skin changes; L60.8 Other nail disorders; R60.0 Localized edema; L60.2 Onychogryphosis; L85.8 Other specified epidermal thickening | CPT/HCPCS: 11719; 11720 ==

== ENCOUNTER 2025-05-10 11:08 | Observation (INO) | payer MEDICARE, SELFPAY ==
[2025-05-10] VITALS (50 sets, daily range): BP systolic 123–174; BP diastolic 58–95; PULSE 56–88; RESP 12–24; TEMP 36.1–36.8; O2SAT 94–99
--- NOTE | 2025-05-10 11:00 | RT.EKG_ITS ---
APPROVED REPORT Exam: Resting ECG Reason for Exam: Irregular Heartbeat Patient Location: E HR:70 bpm ECG Measurements Heart Rate 70 AXIS ME 163 P -10 QRSd 75 QRS -19 QT 418 T 2 QTc 417 Conclusion Sinus rhythm...normal P axis, V-rate 60- 99 Atrial premature complexes in couplets...pair SV complexes w/ short R-R No Occlusion [place]
--- NOTE | 2025-05-10 11:13 | W.ED.GENAD ---
Discharge Plan Disposition Patient Disposition: Admit to [facility] Discharge Details Clinical Impression: Atrial premature complexes, Symptomatic anemia Primary Care Provider: Mala Morrison ED Provider: Teja Acuña Home Meds and New Rx's Prescriptions: No Action cholecalciferol (vitamin D3) 10 mcg (400 unit) capsule 10 mcg PO DAILY tetanus and diphther. tox (PF) 5 Lf unit- 2 Lf unit/0.5mL suspension 0.5 ml IM ONCE Qty: 0.5 0RF Rx Instructions: as a single dose vitamin E 400 UNIT capsule 400 unit PO DAILY [id number] [Excedrin Extra Strength] 1 EACH tablet 1 ea PO HS PRN acetaminophen 650 MG tablet 2 tab PO BID PRN Patient Comments: for arthritis ketoconazole 2 % cream See Rx Instructions .ROUTE .COMPLEX Qty: 60 11RF Dose Instruction: APPLY TOPICALLY ONCE DAILY FOR 3 MONTHS TO TOENAILS Rx Instructions: APPLY TOPICALLY ONCE DAILY FOR 3 MONTHS TO TOENAILS levothyroxine 50 mcg tablet 50 mcg PO DAILY Qty: 90 4RF ropinirole 0.5 mg tablet 0.5 mg PO QHS Qty: 90 6RF Rx Instructions: administer 1-3 hours before bedtime montelukast [Singulair] 10 mg tablet 10 mg PO DAILY Qty: 90 3RF ibuprofen 600 mg tablet 600 mg PO TID PRNQty: 30 3RF aspirin [Aspir-81] 81 mg tablet,delayed release (DR/EC) 81 mg PO DAILY diphenhydramine HCl [Benadryl] 25 mg Capsule 50 mg PO Q6H PRN PRNQty: 0 0RF HPI General Date/Time Provider Initiated Documentation: 05/10/25 11:12. HPI Narrative: [facility] This is an overall quite well-appearing normothermic and not tachycardic 74-year-old female with subjective palpitations sweating and lightheadedness concerning for the possibility of heart block for which patient will undergo ECG and troponin testing in the emergency department. I considered PE however the patient denies chest pain and shortness of breath so I did not send a D-dimer. Patient had had some diarrhea several weeks ago so acute electrolyte abnormalities are certainly in the differential. Patient has hypothyroidism so we will obtain TSH. Will monitor patient on telemetry. She has had no black nor bloody stools to suggest acute GI bleed. She has equal breath sounds and no shortness of breath so doubt aortic dissection. She had no focal weakness to suggest CVA so I did not feel that the patient would be a TNK candidate. No pain out of proportion to suggest necrotizing soft tissue infection. No dysuria or frequency to suggest UTI. Will evaluate for anemia monitor patient on telemetry and reassess. ECG showing narrow complex sinus rhythm at a rate of 70. Left axis deviation no signs of LVH. Low voltage left chest wall leads. Patient does have PACs. No acute injury pattern. 1:40 PM Patient has reassuring normal magnesium. Troponin reassuring. TSH within normal limits. Basic metabolic panel showing no EVIE. Mildly elevated BUN. Mild anion gap. Normal bicarbonate. Repeat reassuring troponin normal delta. CBC showing new microcytic anemia. No thrombocytopenia. No leukocytosis. Further history reveals the patient does routinely use ibuprofen. She reported that she has not had a colonoscopy but has had Cologuard testing in the past. Given her frequent PACs and her symptomatic anemia feel that she will benefit from hospitalization for telemetry and repeat H&H in the morning. No B symptoms to suggest malignancy though she has not had a colonoscopy. If her telemetry during hospitalization is not revealing she may also benefit from Holter monitor. 2 PM I was in touch with Dr. Cabrera who graciously agreed to accept the patient for hospitalization. HPI This is a patient with a history of irregular heartbeat presenting with episodes of sweating and dizziness. The patient has been experiencing an irregular heartbeat for most of her life, which she noticed when taking her own pulse. However, this has not been detected by doctors. She reports no personal history of heart problems and has never had a heart monitor. She has a family history of significant heart disease. Her blood pressure has been fluctuating at home, with a recent reading of 137/91. She is not currently experiencing palpitations. The patient does not consume alcohol daily and only drinks occasionally at night. The patient reports episodes of sweating and dizziness, even when not engaged in physical activity. These episodes can occur while she is sitting or standing for extended periods. During these episodes, she becomes pale and feels slightly dizzy. She does not experience chest pain during these episodes. She describes the onset of these episodes as feeling like a hot flash, followed by sweating and lightheadedness. These episodes last for a few minutes and can occur at rest or during activity. She experienced three such episodes yesterday and four the day before. She has never fainted during these episodes but feels lightheaded. She does not experience shortness of breath during these episodes but does feel slightly breathless when moving around. The patient experienced nausea and vomiting two weeks ago, which was associated with diarrhea and a stomach bug, but these symptoms have since resolved. Exam General: Well-appearing in no acute distress speaking in complete sentences. Head: Normocephalic, atraumatic. Eye: Extraocular eye movements intact. No conjunctival injection. No scleral icterus. Ear, nose, mouth, throat: Grossly normal inspection. Normal voice, handling secretions normally. Neck: Trachea midline. Cardiovascular: Well-perfused distal extremities. Regular rhythm with intermittent extra beats Respiratory: Nonlabored respiration. Clear lungs bilaterally. Gastrointestinal: Nondistended abdomen. Soft. Nontender. Rectal: No gross blood. No melena. Nonthrombosed external hemorrhoids at the approximately 5 o'clock position. Musculoskeletal: No edema. Moving all 4 extremities spontaneously. Skin: Normal for age and race, grossly normal temperature and turgor. No acute rash. Neurologic: Alert and appropriate, no apparent acute deficits. Psychiatric: Mood and manner are appropriate. Grooming and personal hygiene are appropriate. Related Data Home Medications ?Medication ?Instructions ?Recorded ?Confirmed [id number]-ognffysl 250 1 ea PO HS PRN 10/16/12 05/10/25 mg-250 mg-65 mg tablet (Excedrin Extra Strength) vitamin E 268 mg (400 unit) capsule 400 unit PO DAILY 10/16/12 05/10/25 acetaminophen 650 mg 2 tab PO BID PRN 03/14/14 05/10/25 tablet,extended release diphenhydramine HCl 25 mg capsule 50 mg (2 x 25 mg) PO Q6H PRN PRN 05/09/18 05/10/25 (Benadryl) #0 caps ibuprofen 600 mg tablet 600 mg PO TID PRN #30 tabs 04/21/19 05/10/25 aspirin 81 mg tablet,delayed 81 mg PO DAILY 12/25/20 05/10/25 release (Aspir-) cholecalciferol (vitamin D3) 10 10 mcg PO DAILY 08/13/21 05/10/25 mcg (400 unit) capsule ketoconazole 2 % topical cream See Rx Instructions .Route 09/23/24 05/10/25 .COMPLEX #60 grams levothyroxine 50 mcg tablet 50 mcg PO DAILY #90 tab-caps 02/27/25 05/10/25 ropinirole 0.5 mg tablet 0.5 mg PO QHS #90 tabs 02/27/25 05/10/25 tetanus and diphther. tox (PF) 5 0.5 ml IM ONCE #0.5 mL 03/03/25 05/10/25 Lf unit-2 Lf unit/0.5 mL IM susp montelukast 10 mg tablet 10 mg PO DAILY #90 tab-caps 04/18/25 05/10/25 (Singulair) Previous Rx's ?Medication ?Instructions ?Recorded diphenhydramine HCl 25 mg capsule 50 mg (2 x 25 mg) PO Q6H PRN PRN 05/09/18 (Benadryl) #0 caps ibuprofen 600 mg tablet 600 mg PO TID PRN #30 tabs 04/21/19 ketoconazole 2 % topical cream See Rx Instructions .Route 09/23/24 .COMPLEX #60 grams levothyroxine 50 mcg tablet 50 mcg PO DAILY #90 tab-caps 02/27/25 ropinirole 0.5 mg tablet 0.5 mg PO QHS #90 tabs 02/27/25 tetanus and diphther. tox (PF) 5 0.5 ml IM ONCE #0.5 mL 03/03/25 Lf unit-2 Lf unit/0.5 mL IM susp montelukast 10 mg tablet 10 mg PO DAILY #90 tab-caps 04/18/25 (Singulair) Allergies Allergy/AdvReac Type Severity Reaction Status Date / Time Estrogens Allergy Intermediate swollen, Verified 05/10/25 11:32 itchy vulva house dust Allergy Intermediate SNEEZING, Verified 05/10/25 11:32 WATERY EYES Sulfa (Sulfonamide Allergy Intermediate HIVES, Verified 05/10/25 11:32 Antibiotics) ITCHING trimethoprim Allergy Intermediate Hives Verified 05/10/25 11:32 nickel Allergy Unknown SWELLING,IT Verified 05/10/25 11:32 PARAS celecoxib (From Celebrex) AdvReac Intermediate headaches Verified 05/10/25 11:32 oxycodone AdvReac Intermediate Headache Verified 05/10/25 11:32 ranitidine AdvReac Mild Diarrhea Verified 05/10/25 11:32 influenza virus vaccine, AdvReac body Verified 05/10/25 11:32 specific aches, fatigue cedar oil Allergy Severe Hives Uncoded 05/10/25 11:32 pollen AdvReac environmental Uncoded 05/10/25 11:32 allergies General MILAGROS: 3 Medical Decision Making Quality:SDOH Health Related Social Needs: Health related social needs inadequate housing lonely/isolated PFSH All Active Problems (Updated 05/10/25 @ 13:44 by Teja Acuña MD) Symptomatic anemia (Acute) Atrial premature complexes (Acute) Lumbar pain (Acute) Internal derangement of left knee (Acute) Left knee DJD (Chronic) DEPO MEDROL: 01/07/2025; 07/12/2024 Bilateral knee pain (Acute) Toe pain, right (Acute) Toe pain, left (Acute) Tinea pedis (Acute) Onychomycosis (Acute) Pain, foot (Acute) Stress due to family tension (Acute) Cough (Acute) Genu recurvatum (Acute) Posterior left knee pain (Acute) Left shoulder pain (Acute) ILANA (renal artery stenosis) (Acute 09/11/15) Restless leg (Acute) 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) NATALIE on CPAP (Chronic 02/28/14) Low back pain (Chronic 07/10/04) neg xray; right leg pain Left foot pain (Chronic 02/23/18) Hypothyroidism (Chronic 09/21/13) Hypertrophy of nasal turbinates (Chronic 02/28/14) Hyperlipidemia (Chronic 03/31/12) Hearing disorder (Chronic) Esophagitis (Chronic 11/23/12) WITH MILDLY CONSTRICTING SCHATZKI'S RING; LARGE AXIAL HIATUS AND DIFUSE GASTRITIS Bilateral hand pain (Chronic 09/15/14) Allergic rhinitis due to pollen (Chronic 07/24/15) Chronic pain disorder (Chronic 07/31/17) 07/31/17 CONTROLLED SUBSTANCE AGREEMENT (TRAMADOL) Medical History Nail dystrophy Candidiasis (10/21/17) Depressive disorder Uterine leiomyoma Trigger thumb of right hand Trigger thumb of left hand S/p trigger release Depressive disorder Uterine leiomyoma partial hyst. and bladder suspension. 1991-abnl cells Rash 09/11/15 Weakness of both hips (10/21/17) Visual disturbance Thrombophlebitis Hypothyroid Surgical History Status post trigger finger release Left thumb DOS: 04/21/19 History of bladder surgery History of esophagogastroduodenoscopy History of wisdom tooth extraction Status post laparoscopic hysterectomy H/O wisdom tooth extraction S/P laparoscopic hysterectomy 08/11/90 partial History of bladder surgery 08/11/90 H/O esophagogastroduodenoscopy 08/11/12 mildly constricting Schatzki's Ring; large axial hiatus and difuse gastritis Vein Stripping left leg 2014 Nasal septoplasty 2013 Hysterectomy, Laproscopic (~1990) partial EGD - MAC (11/23/12) WITH MILDLY CONSTRICTING SCHATZKI'S RING; LARGE AXIAL HIATUS AND DIFUSE GASTRITIS Tooth extraction 1 wisdom tooth 06/06/11 all but 3 wisdom teeth Extraction of cataract 05/08/17 DR. CRUZ; LEFT EYE 05/22/17 DR. CRUZ; RIGHT EYE Bladder Surgery (~1989) Family History Mother , 90 Stroke Father , 72 Diabetes Heart disease Hyperlipidemia Stroke Pancreatic cancer Brother No problems noted. Maternal Grandfather , 86 Skin cancer Brain cancer Paternal Grandfather , 29 No problems noted. Maternal Grandmother , 39 Breast cancer Paternal Grandmother , 26 No problems noted. Son No problems noted. Daughter No problems noted. Social History Smoking/Tobacco Use Status: Former Tobacco Use tobacco type: cigarettes Quit Date: 08/11/04 Tobacco: How many years used: 45 Quit status: quit date established Second Hand Exposure: Yes Smoking risk assessment performed?: Yes Alcohol Intake: current Alcohol Intake frequency: holidays/special occasions only Alcohol type: wine and hard liquor Drug use: Never Substance use type: does not use Adopted: No Caregiver/Support person: No Household members: spouse Housing: house Number of Children: 6 number of grandchildren: 12 Communication Needs: Hard of Hearing and Corrective Lenses Education Level: college Details: 2 years of nursing school Do you need help understanding health information?: Rarely current occupation: retired seamstress Pets and animals: Yes Pets and animals: dog(s) Sexually active: No Do you think of yourself as: straight/heterosexual Current gender identity: female What is your relationship status?: How often do you talk on the phone with friends or family?: three or more times per week How often do you get together with friends or relatives?: twice per week How often do you attend adventist or mu-ism services?: 1-3 times per year Do you belong to any clubs or organized social groups?: no Panel score (0-1 are the most socially isolated patients): 2 What type of physical activity do you participate in: walking Duration: < 15 minutes/day Frequency: 5-6 times per week Debbie/Religious: Non episcopal Special debbie needs: No Seatbelt use: always Helmet use: Yes Helmet use: sometimes Drive intox or ride w/intox flatbed truck driver: No Firearms in home: Yes Firearms unloaded and locked: Yes Do you feel safe at home: Yes (unable to ask privately)
[2025-05-10 12:05] LABS: Abs Immature Grans 0.00 10^3/uL (0.0-0.06); HCT 28.4 % (36.0-46.0); Immature Grans % 0.0 %; MCH 21.8 pg (27.0-33.0); MCHC 28.5 % (32.0-36.0); MCV 76 fL (80-95); MPV 9.9 fL (8.0-11.0); Platelet Count 276 10^3/uL (130-400); RBC 3.72 10^6/uL (3.93-5.22); RDW 17.4 % (11.7-14.6); RDW-SD 47.8 fL; WBC 4.51 10^3/uL (4.4-10.8)
[2025-05-10 12:07] LABS: HGB 8.1 g/dL (11.2-15.7)
[2025-05-10 12:58] LABS: Anion Gap 11.2 mmol/L (3-11); BUN 19 mg/dL (7-18); CO2 24.8 mmol/L (21.0-32.0); Calcium 8.6 mg/dL (8.5-10.1); Chloride 103 mmol/L (98-107); Estimated GFR 52.40 (mL/min/1.73m2); Glucose 88 mg/dL (74-106); Magnesium 2.0 mg/dL (1.8-2.4); Potassium 4.3 mmol/L (3.5-5.1); Sodium 139 mmol/L (136-145); TSH (W/Ref FT4) 2.15 uIU/mL (0.36-3.74); Troponin I 4 ng/L (<or=51)
[2025-05-10 13:11] LABS: Troponin I 4 ng/L (<or=51)
[2025-05-10 15:47] LABS: Iron 16 ug/dL (50-170); Total Iron Binding Capacity 476 ug/dL (250-450); Transferrin Sat 3 % (15-50)
--- NOTE | 2025-05-10 16:18 | W.PC.ACHO ---
Registration Status: REG ER Primary Language: Preferred Language: Kiswahili ED Information & Data Chief Complaint Palpitatns 05/10/25 11:29 Chief Complaint Palpitatns 05/10/25 11:20 Triage Note patient presented to the ER 05/10/25 11:20 with dizziness and periodic palpitations, with sweating and lightheadedness Patient reported having a stomach bug a 2 weeks ago. Denies chest pain or SOB. State when the palpitations starts she feels as if she is having a hot flash Medical / Surgical History (Last Reviewed 04/19/25 @ 13:08 by Tammie Velazquez DPM) Nail dystrophy Candidiasis (10/21/17) Depressive disorder Uterine leiomyoma Trigger thumb of right hand Trigger thumb of left hand Depressive disorder Uterine leiomyoma Rash Weakness of both hips (10/21/17) Visual disturbance Thrombophlebitis Hypothyroid (Last Reviewed 04/19/25 @ 13:08 by Tammie Velazquez DPM) Status post trigger finger release History of bladder surgery History of esophagogastroduodenoscopy History of wisdom tooth extraction Status post laparoscopic hysterectomy H/O wisdom tooth extraction S/P laparoscopic hysterectomy History of bladder surgery H/O esophagogastroduodenoscopy Vein Stripping Nasal septoplasty Hysterectomy, Laproscopic (~1990) EGD - MAC (11/23/12) Tooth extraction Extraction of cataract Bladder Surgery (~1989) Most Recent Vital Signs Temperature 36.8 C 05/10/25 11:20 Temperature Source Oral 05/10/25 11:20 Pulse 63 05/10/25 16:10 Pulse 67 05/10/25 16:10 Respiratory Rate 16 05/10/25 16:10 Blood Pressure 167/84 H 05/10/25 16:00 Blood Pressure Mean 116 05/10/25 16:00 Blood Pressure Position Supine 05/10/25 11:20 Pulse Oximetry 96 05/10/25 16:10 Oxygen Delivery Method Room Air 05/10/25 11:20 Oxygen Flow Rate 0 05/10/25 11:20 Allergies Estrogens Allergy (Intermediate, Verified 05/10/25 11:32) swollen, itchy vulva house dust Allergy (Intermediate, Verified 05/10/25 11:32) SNEEZING, WATERY EYES Sulfa (Sulfonamide Antibiotics) Allergy (Intermediate, Verified 05/10/25 11:32) HIVES, ITCHING trimethoprim Allergy (Intermediate, Verified 05/10/25 11:32) Hives nickel Allergy (Unknown, Verified 05/10/25 11:32) SWELLING,ITCHING celecoxib (From Celebrex) Adverse Reaction (Intermediate, Verified 05/10/25 11:32) headaches oxycodone Adverse Reaction (Intermediate, Verified 05/10/25 11:32) Headache ranitidine Adverse Reaction (Mild, Verified 05/10/25 11:32) Diarrhea influenza virus vaccine, specific Adverse Reaction (Verified 05/10/25 11:32) body aches, fatigue cedar oil Allergy (Severe, Uncoded 05/10/25 11:32) Hives pollen Adverse Reaction (Uncoded 05/10/25 11:32) environmental allergies IV IV Catheter Type [Right Saline Lock Antecubital] IV Catheter Gauge [Right 18 Antecubital] Diet Orders Category Date Time Status Regular/Normal [DIET] Nutrition 05/10/25 Dinner Active Diagnostics 05/10/25 05/10/25 05/10/25 Range/Units 17:00 12:50 11:50 WBC 4.51 (4.4-10.8) 10^3/uL RBC 3.72 L (3.93-5.22) 10^6/uL Hgb Pending 8.1 L (11.2-15.7) g/dL Hct Pending 28.4 L (36.0-46.0) % MCV 76 L (80-95) fL MCH 21.8 L (27.0-33.0) pg MCHC 28.5 L (32.0-36.0) % RDW 17.4 H (11.7-14.6) % Plt Count 276 (130-400) 10^3/uL MPV 9.9 (8.0-11.0) fL Immature Gran % 0.0 % Neutrophils % 54.9 % Lymphocytes % 33.5 % Monocytes % 7.8 % Eosinophils % 3.1 % Basophils % 0.7 % Nucleated RBC % 0.0 (0.0-0.3) % Absolute Neutrophils 2.48 (1.2-6.7) 10^3/uL Absolute Lymphocytes 1.51 (1.2-3.4) 10^3/uL Absolute Monocytes 0.35 (0.1-0.8) 10^3/uL Absolute Eosinophils 0.14 (0.0-0.7) 10^3/uL Absolute Basophils 0.03 (0.0-0.2) 10^3/uL Sodium 139 (136-145) mmol/L Potassium 4.3 (3.5-5.1) mmol/L Chloride 103 (98-107) mmol/L Carbon Dioxide 24.8 (21.0-32.0) mmol/L Anion Gap 11.2 H (3-11) mmol/L BUN 19 H (7-18) mg/dL Creatinine 1.1 H (0.55-1.02) mg/dL Est GFR (CKD-EPI 2020) 52.40 (mL/min/1.73m2) Glucose 88 (74-106) mg/dL Calcium 8.6 (8.5-10.1) mg/dL Magnesium 2.0 (1.8-2.4) mg/dL Iron 16 L (50-170) ug/dL TIBC 476 H (250-450) ug/dL Transferrin % Sat 3 L (15-50) % Troponin I 4 4 (<or=51) ng/L TSH 2.15 (0.36-3.74) uIU/mL B. divergens/MO-1 PCR Pending Babesia duncani (PCR) Pending Babesia microti DNA PCR Pending Lyme Disease Antibody Pending E.chaffeensis DNA (PCR) Pending E.ewingii/canis DNA PCR Pending E.muris eauclairensis (PCR) Pending A. phagocytophilum (PCR) Pending Blood B. miyamotoi (PCR) Pending Intake and Output - 24 Hour Total 05/10/25 11:08 thru 05/10/25 11:20 Weight 78 kg Falls Risk Assessment History of Falls No History 05/10/25 12:07 Contributing Factors No Factors 05/10/25 12:07 Ambulatory Aids Independent 05/10/25 12:07 Tubes/Lines None 05/10/25 12:07 Gait Evaluation No gait disturbance 05/10/25 12:07 Cognition No cognitive impairment 05/10/25 12:07 Fall Total Score 0 05/10/25 12:07 Level of Risk Standard/Low Risk 05/10/25 12:07 Problems (Last Reviewed 04/19/25 @ 13:08 by Tammie Velazquez DPM) Symptomatic anemia (Acute) Atrial premature complexes (Acute) v v v v v v v v v Sending and/or Receiving Nurses: Please use comment section below to note any information pertinent to the patient hand-off not included above. Information / Comments: Report received from: Jeaneth ESPAÑA, ED at [id number]
[2025-05-10 17:49] LABS: HCT 29.3 % (36.0-46.0); HGB 8.4 g/dL (11.2-15.7)
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
[2025-05-10] MEDS: Pantoprazole 40 MG TABCR PO (20:00)
[2025-05-10] MEDS: Acetaminophen 325 MG TAB 650 MG PO (20:26)
[2025-05-10] MEDS: rOPINIRole 0.5 MG TAB PO (20:27)
[2025-05-10] MEDS: FERRIC CARBOXYMALTOSE 750 MG in Normal Saline 250 ML 1000 MG IVPB (21:53)
[2025-05-11] MEDS: Normal Saline Flush 10 ML SYR (01:32)
[2025-05-11] MEDS: Levothyroxine 50 MCG TAB PO (06:02)
[2025-05-11 06:58] LABS: HCT 28.3 % (36.0-46.0); HGB 8.1 g/dL (11.2-15.7); MCH 21.4 pg (27.0-33.0); MCHC 28.6 % (32.0-36.0); MPV 9.9 fL (8.0-11.0); Platelet Count 264 10^3/uL (130-400); RBC 3.79 10^6/uL (3.93-5.22); RDW 17.4 % (11.7-14.6); RDW-SD 47.0 fL; WBC 3.63 10^3/uL (4.4-10.8)
[2025-05-11 07:16] LABS: Anion Gap 8.4 mmol/L (3-11); BUN 15 mg/dL (7-18); CO2 26.6 mmol/L (21.0-32.0); Calcium 8.6 mg/dL (8.5-10.1); Chloride 105 mmol/L (98-107); Estimated GFR 76.79 (mL/min/1.73m2); Glucose 103 mg/dL (74-106); Potassium 4.0 mmol/L (3.5-5.1); Sodium 140 mmol/L (136-145)
[2025-05-11 07:32] VITALS: BP 133/74; PULSE 72; RESP 16; TEMP 36.3; O2SAT 95
[2025-05-11 07:46] LABS: MCV 75 fL (80-95)
[2025-05-11 07:47] LABS: Folate 18.9 ng/mL (8.6-20.0); Vitamin B12 1031 pg/mL (193-986)
[2025-05-11] MEDS: Montelukast 10 MG TAB PO (08:27)
[2025-05-11] MEDS: Pantoprazole 40 MG TABCR PO (08:27)
[2025-05-11] MEDS: Ketoconazole 2% CREAM 15 GM TUBE TP (08:28)
[2025-05-11 10:32] LABS: Lyme Ab w Rflx to Lyme Confirm Negative (Negative)
[2025-05-11 11:15] VITALS: BP 110/74; BP 135/83; BP 139/68; PULSE 63; PULSE 68; PULSE 78
[2025-05-11] MEDS: Lactated Ringers 500 ML IV (12:48)
[2025-05-11] MEDS: Acetaminophen 325 MG TAB 650 MG PO (12:55)
--- NOTE | 2025-05-11 12:55 | W.PM.DS.N ---
Date of service: 05/11/25 Time of Service: 13:47 DS: Diagnosis Discharge Diagnosis (1) Symptomatic anemia: Status: Acute (2) Atrial premature complexes: Status: Acute (3) Hypothyroidism: Status: Chronic (4) Chronic pain disorder: Status: Chronic (5) On deep vein thrombosis (DVT) prophylaxis: Status: Acute Discharge Plan Disposition Patient Disposition: Home W/Home Health Services Condition: Improving Discharge Details Reason For Visit: Palpitations, Severe Anemia Admit Date/Time: 05/10/25 15:19 Admit Provider: Teja Cabrera Attending Provider: Teja Cabrera [facility] Course: 74 years old female patient with past medical history of chronic pain disorder, 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 Work-up in the ED was positive for severe anemia with and H&H of 8.1 and 28. EKG showing sinus rhythm heart rate 70 without signs of coronary occlusion with negative troponins, PAC's mentioned in ED provider's notes. Vital signs were stable. No report of headache, chest pain, history of [place], shortness of breath, nausea, hematemesis, hematochezia or melena, but had episodes of darker colored diarrhea 2 weeks ago. Also reporting on and off anemia in the past, EGD, increased severity in heart burn and concerning for worsening of her hiatal hernia. The patient was admitted to the medical surgical floor with telemetry for severe symptomatic microcytic anemia and H&H trending. Confirm full code status but only with manual chest compressions. Mentioned recently status in the past [address] to cook and eat by herself. H&H remained stable , orhtostatic vital signs were positive and IVF bolus administered.. Iron studies completed with IV iron replacement given with recommendation for subsequent dose of IV ferric carboxymaltose 300 mg in 7 days in outpatient infusion, patient mentioning not tolerating oral iron. The patient improved clinically and was deemed safe to discharged home as per PT consult. The patient will follow-up with PCP within 7 days of discharge. Recommendation for PCP follow-up: Outpatient surgical referral for anemia work-up IV ferric carboxymaltose 300 mg in 7 days H&H trending H&H trending Outpatient nutrition referral Discussed with Dr. Cabrera Recommendations for Follow Up Recommended tests to be ordered by follow up provider: CBC ordered Home Meds and New Rx's Prescriptions: New pantoprazole 40 mg Tablet,Delayed Release (Dr/Ec) 40 mg PO BID@ Qty: 60 0RF acetaminophen 500 mg capsule 1,000 mg PO TID Qty: 60 0RF Continued cholecalciferol (vitamin D3) 10 mcg (400 unit) capsule 10 mcg PO DAILY vitamin E 400 UNIT capsule 400 unit PO DAILY ketoconazole 2 % cream See Rx Instructions .ROUTE .COMPLEX Qty: 60 11RF Dose Instruction: APPLY TOPICALLY ONCE DAILY FOR 3 MONTHS TO TOENAILS Rx Instructions: APPLY TOPICALLY ONCE DAILY FOR 3 MONTHS TO TOENAILS levothyroxine 50 mcg tablet 50 mcg PO DAILY Qty: 90 4RF ropinirole 0.5 mg tablet 0.5 mg PO QHS Qty: 90 6RF Rx Instructions: administer 1-3 hours before bedtime montelukast [Singulair] 10 mg tablet 10 mg PO DAILY Qty: 90 3RF aspirin [Aspir-81] 81 mg tablet,delayed release (DR/EC) 81 mg PO DAILY diphenhydramine HCl [Benadryl] 25 mg Capsule 50 mg PO Q6H PRN PRNQty: 0 0RF Held acetaminophen 650 MG tablet 2 tab PO BID PRN Hold Instructions: Resume on 05/25/25. Review with PCP Patient Comments: for arthritis Discontinued ibuprofen 600 mg tablet 600 mg PO TID PRNQty: 30 3RF Discharge Instructions Referrals: Mala Morrison MD, [place] [Primary Care Provider, Medicine] Referral Note: Follow-up within 7 days of discharge Activity:: Activity as Tolerated Equipment/Supplies:: No Equipment Needed Diet:: heart healthy Discharge Orders Other Ambulatory Orders: Complete Blood Count w/Diff (Routine) Timeframe: [id number] Facility: [facility] - Location: Laboratory Outpatient - [facility] Ordered By: Clary Mirza DS: Summary Time Spent with Patient providing and/or coordinating discharge services: Greater than 30 minutes Status at Discharge Functional status at discharge: independent ambulation Overall status at discharge: patient is progressing back to baseline Mental Status: mental status grossly normal Speech and Movement: speech and movement normal Mood: congruent mood Affect: normal affect Quality:SDOH Health Related Social Needs: Health related social needs inadequate housing lonely/isolated Exam Narrative Exam Narrative: 74 years old female patient appearing of stated age, appears well perfused today, improved skin color - pink , warm dry. Alert and oriented X 4, neurologically intact , S1, S2, regular sinusal rhythm HR 68 on telemetry PPP X 4 , abdomen is non-distended , soft and non tender, no CVA tenderness, moves upper and lower extremities with equal strength respectively. No CVA tenderness Psych Mental Status: mental status grossly normal Speech and Movement: speech and movement normal Mood: congruent mood Affect: normal affect DS: Data Vitals/I&O Vitals and I&O: Vital Signs Temperature 36.3 C L 05/11/25 07:32 Temperature Source Temporal Artery Scan 05/11/25 07:32 Pulse 63 05/11/25 11:15 Pulse Rhythm Regular 05/10/25 17:05 Pulse 67 05/10/25 16:10 Respiratory Rate 16 05/11/25 07:32 Respiratory Effort Normal, Non-Labored 05/10/25 17:05 Respiratory Depth Normal 05/10/25 17:05 Respiratory Pattern Normal 05/10/25 17:05 Blood Pressure 139/68 05/11/25 11:15 Blood Pressure Mean 93 05/11/25 07:32 Blood Pressure Position Supine 05/10/25 11:20 Pulse Oximetry 95 05/11/25 07:32 Oxygen Delivery Method Room Air 05/11/25 07:32 Oxygen Flow Rate 0 05/11/25 07:32 Pain Level 0 05/11/25 07:32 Intake & Output 05/10/25 05/11/25 05/11/25 23:59 11:59 23:59 Intake Total 770 / 770 Balance 770 / 770 Weight 72.8 kg 72.9 kg Intake: Oral 770 / 770 Other: Urine Color Yellow Urine Appearance Clear Clear Urine Odor Normal Comment Pt voided in toilet Data Completed and Pending Labs on day of discharge: Labs from last 24 hours 05/11/25 05/10/25 05/10/25 06:12 17:35 12:50 WBC 3.63 L RBC 3.79 L Hgb 8.1 L 8.4 L Hct 28.3 L 29.3 L MCV 75 L MCH 21.4 L MCHC 28.6 L RDW 17.4 H Plt Count 264 MPV 9.9 Sodium 140 Potassium 4.0 Chloride 105 Carbon Dioxide 26.6 Anion Gap 8.4 BUN 15 Creatinine 0.8 Est GFR (CKD-EPI 2020) 76.79 Glucose 103 Calcium 8.6 Magnesium Iron TIBC Transferrin % Sat Troponin I 4 Vitamin B12 1031 H Folate 18.9 TSH 05/10/25 11:50 WBC RBC Hgb Hct MCV MCH MCHC RDW Plt Count MPV Sodium 139 Potassium 4.3 Chloride 103 Carbon Dioxide 24.8 Anion Gap 11.2 H BUN 19 H Creatinine 1.1 H Est GFR (CKD-EPI 2020) 52.40 Glucose 88 Calcium 8.6 Magnesium 2.0 Iron 16 L TIBC 476 H Transferrin % Sat 3 L Troponin I 4 Vitamin B12 Folate TSH 2.15 PFSH All Active Problems (Updated 05/10/25 @ 19:01 by Clary Mirza APRN) On deep vein thrombosis (DVT) prophylaxis (Acute) Symptomatic anemia (Acute) Atrial premature complexes (Acute) Lumbar pain (Acute) Internal derangement of left knee (Acute) Left knee DJD (Chronic) DEPO MEDROL: 01/07/2025; 07/12/2024 Bilateral knee pain (Acute) Toe pain, right (Acute) Toe pain, left (Acute) Tinea pedis (Acute) Onychomycosis (Acute) Pain, foot (Acute) Stress due to family tension (Acute) Cough (Acute) Genu recurvatum (Acute) Posterior left knee pain (Acute) Left shoulder pain (Acute) ILANA (renal artery stenosis) (Acute 09/11/15) Restless leg (Acute) 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) NATALIE on CPAP (Chronic 02/28/14) Low back pain (Chronic 07/10/04) neg xray; right leg pain Left foot pain (Chronic 02/23/18) Hypothyroidism (Chronic 09/21/13) Hypertrophy of nasal turbinates (Chronic 02/28/14) Hyperlipidemia (Chronic 03/31/12) Hearing disorder (Chronic) Esophagitis (Chronic 11/23/12) WITH MILDLY CONSTRICTING SCHATZKI'S RING; LARGE AXIAL HIATUS AND DIFUSE GASTRITIS Bilateral hand pain (Chronic 09/15/14) Allergic rhinitis due to pollen (Chronic 07/24/15) Chronic pain disorder (Chronic 07/31/17) 07/31/17 CONTROLLED SUBSTANCE AGREEMENT (TRAMADOL) Medical History Nail dystrophy Candidiasis (10/21/17) Depressive disorder Uterine leiomyoma Trigger thumb of right hand Trigger thumb of left hand S/p trigger release Depressive disorder Uterine leiomyoma partial hyst. and bladder suspension. 1990-abnl cells Rash 09/11/15 Weakness of both hips (10/21/17) Visual disturbance Thrombophlebitis Hypothyroid Surgical History Status post trigger finger release Left thumb DOS: 04/21/19 History of bladder surgery History of esophagogastroduodenoscopy History of wisdom tooth extraction Status post laparoscopic hysterectomy H/O wisdom tooth extraction S/P laparoscopic hysterectomy 08/11/90 partial History of bladder surgery 08/11/90 H/O esophagogastroduodenoscopy 08/11/12 mildly constricting Schatzki's Ring; large axial hiatus and difuse gastritis Vein Stripping left leg 2014 Nasal septoplasty 2013 Hysterectomy, Laproscopic (~1990) partial EGD - MAC (11/23/12) WITH MILDLY CONSTRICTING SCHATZKI'S RING; LARGE AXIAL HIATUS AND DIFUSE GASTRITIS Tooth extraction 1 wisdom tooth 06/06/11 all but 3 wisdom teeth Extraction of cataract 05/08/17 DR. CRUZ; LEFT EYE 05/22/17 DR. CRUZ; RIGHT EYE Bladder Surgery (~1989) Family History Mother , 90 Stroke Father , 72 Diabetes Heart disease Hyperlipidemia Stroke Pancreatic cancer Brother No problems noted. Maternal Grandfather , 86 Skin cancer Brain cancer Paternal Grandfather , 29 No problems noted. Maternal Grandmother , 39 Breast cancer Paternal Grandmother , 26 No problems noted. Son No problems noted. Daughter No problems noted. Social History Smoking/Tobacco Use Status: Former Tobacco Use tobacco type: cigarettes Quit Date: 08/11/04 Tobacco: How many years used: 45 Quit status: quit date established Second Hand Exposure: Yes Smoking risk assessment performed?: Yes Alcohol Intake: current Alcohol Intake frequency: holidays/special occasions only Alcohol type: wine and hard liquor Drug use: Never Substance use type: does not use Adopted: No Caregiver/Support person: No Household members: spouse Housing: house Number of Children: 6 number of grandchildren: 12 Communication Needs: Hard of Hearing and Corrective Lenses Education Level: college Details: 2 years of nursing school Do you need help understanding health information?: Rarely current occupation: retired seamstress Pets and animals: Yes Pets and animals: dog(s) Sexually active: No Do you think of yourself as: straight/heterosexual Current gender identity: female What is your relationship status?: How often do you talk on the phone with friends or family?: three or more times per week How often do you get together with friends or relatives?: twice per week How often do you attend orthodox or yazidi services?: 1-3 times per year Do you belong to any clubs or organized social groups?: no Panel score (0-1 are the most socially isolated patients): 2 What type of physical activity do you participate in: walking Duration: < 15 minutes/day Frequency: 5-6 times per week Debbie/Temple: Non methodist Special debbie needs: No Seatbelt use: always Helmet use: Yes Helmet use: sometimes Drive intox or ride w/intox school bus driver/custodian: No Firearms in home: Yes Firearms unloaded and locked: Yes Do you feel safe at home: Yes (unable to ask privately) Time Spent with Patient Time Spent with Patient: >85 minutes Time was spent: preparing to see the patient(eg.review tests), obtaining and/or reviewing separately otained hiistory, ordering medications,tests, procedures, referring, communicating with other health palliative care coordinator, indepentently interpreting results, counseling the patient, care coordination and other
--- NOTE | 2025-05-11 13:31 | IN_ITS ---
PT Notes Visit Reasons: Palpitations, Severe Anemia Physical Therapy Inpatient Initial Evaluation Date: 05/11/2025 Referring Doctor: Clary Mirza APRN PT Orders: PT CONSULT: Safety consult for discharge, fall safety assessment Precautions: Standard, IV infusing right upper extremity antecubital Patient Profile/Admitting Diagnosis: Patient is a 74-year-old female presented to the ED on 05/10/2025. Patient diagnosed with anemia, and admitted for observation and further medical management. PT consult placed for safety consult for discharge PMHX: On deep vein thrombosis (DVT) prophylaxis (Acute) Symptomatic anemia (Acute) Atrial premature complexes (Acute) Lumbar pain (Acute) Internal derangement of left knee (Acute) Left knee DJD (Chronic) DEPO MEDROL: 01/07/2025; 07/12/2024ilateral knee pain (Acute) Toe pain, right (Acute) Toe pain, left (Acute) Tinea pedis (Acute) Onychomycosis (Acute) Pain, foot (Acute) Stress due to family tension (Acute) Cough (Acute) Genu recurvatum (Acute) Posterior left knee pain (Acute) Left shoulder pain (Acute) ILANA (renal artery stenosis) (Acute 09/11/15) Restless leg (Acute) 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) NATALIE on CPAP (Chronic 02/28/14) Low back pain (Chronic 07/10/04) neg xray; right leg pain Left foot pain (Chronic 02/23/18) Hypothyroidism (Chronic 09/21/13) Hypertrophy of nasal turbinates (Chronic 02/28/14) Hyperlipidemia (Chronic 03/31/12) Hearing disorder (Chronic) Esophagitis (Chronic 11/23/12) WITH MILDLY CONSTRICTING SCHATZKI'S RING; LARGE AXIAL HIATUS AND DIFUSE GASTRITIS Bilateral hand pain (Chronic 09/15/14) Allergic rhinitis due to pollen (Chronic 07/24/15) Chronic pain disorder (Chronic 07/31/17) 07/31/17 CONTROLLED SUBSTANCE AGREEMENT (TRAMADOL) Medical History Nail dystrophy Candidiasis (10/21/17) Depressive disorder Uterine leiomyoma Trigger thumb of right hand Trigger thumb of left hand S/p trigger releaseDepressive disorder Uterine leiomyoma partial hyst. and bladder suspension. 1990-abnl cellsRash 09/11/15Weakness of both hips (10/21/17) Visual disturbance Thrombophlebitis Hypothyroid Surgical History Status post trigger finger release Left thumb DOS: 04/21/19History of bladder surgery History of esophagogastroduodenoscopy History of wisdom tooth extraction Status post laparoscopic hysterectomy H/O wisdom tooth extraction S/P laparoscopic hysterectomy 08/11/90 partialHistory of bladder surgery 08/11/90H/O esophagogastroduodenoscopy 08/11/12 mildly constricting Schatzki's Ring; large axial hiatus and difuse gastritisVein Stripping left leg 2015Nasal septoplasty 2014Hysterectomy, Laproscopic (~1990) partialEGD - MAC (11/23/12) WITH MILDLY CONSTRICTING SCHATZKI'S RING; LARGE AXIAL HIATUS AND DIFUSE GASTRITISTooth extraction 1 wisdom tooth 06/06/11 all but 3 wisdom teethExtraction of cataract 05/08/17 DR. CRUZ; LEFT EYE 05/22/17 DR. CRUZ; RIGHT EYE Bladder Surgery (~1989) Social History/Home Situation: Patient resides alone in her home 2 steps to enter. Patient independent without assistive device, drives, independent ADLs, independent home management including meal preparation Equipment Owned/DME: None Subjective: Patient reports she feels much better Objective: [] General Observation: Female reclined in chair IV infusing right upper extremity Mental Status: A+Ox4, cooperative able to follow instructions, agreeable to participate Pain: my knee aches at times from my arthritis ROM: [] BUE: WNL BLE : WNL Strength: [] BUE: 5/5 Right Lower Extremity: 5/5 Left Lower Extremity: 5/5 Sensation: intact Bed Mobility/Transfers: Supine to sit Independent Sit to stand Independent Stand to sit Independent Bed to chair Independent Gait: 200 feet with out AD supervision level surfaces including directional changes, decreased speed, stairs : 3 4 steps? and 2 6 steps with 1 rail Supervision reciprocal pattern Balance: [] Static Sitting: Normal Dynamic Sitting: Normal Static Standing: Normal Dynamic Standing: Good Special Tests: [] Mobility Limitations Standardized Measure [] [facility] In[facility] Short Form: [] Raw Score: 24 CMS Score: 0 % deficit Informed Consent/Education: Patient instructed in purpose of PT consult. Assessment: Patient is a 74-year-old female referred to skilled PT for safety assessment in anticipation of discharge to home. Patient demonstrates independence with all transfers bed mobility and ambulation without assistive device at this time. Skilled PT services not indicated within home as patient is independent. No further skilled PT indicated as inpatient Patient is assessed as a low complexity based on the following: History: 74-year-old female with impairment level findings, functional limitations, and past medical history as indicated above Examination: Demonstrable impairment in strength, balance, and mobility level with underlying impairments and functional limitations as documented above Presentation: stable Decision Making: low Goals: N/A. PT evaluation and 1-2 treatment sessions only for functional mobility training using recommended AD and for HEP instruction. Plan of Care/Treatment Plan: N/A. PT evaluation and 1-2 treatment session only for functional mobility training using recommended AD and for HEP instruction. DISCHARGE RECOMMENDATIONS: Home with no services indicated TREATMENT CODE/TIME: 83075,45049/ [id number] Thank you for the opportunity to participate in the care of this patient. Ledy White, PT [facility]
--- NOTE | 2025-05-11 14:48 | DSE_ITS ---
Date of service: 05/11/25 Time of Service: 14:48 DS: Diagnosis Discharge Diagnosis (1) Symptomatic anemia: Status: Acute (2) Atrial premature complexes: Status: Acute (3) Hypothyroidism: Status: Chronic (4) Chronic pain disorder: Status: Chronic (5) On deep vein thrombosis (DVT) prophylaxis: Status: Acute Discharge Plan Disposition Patient Disposition: Home Condition: Improving Discharge Details Reason For Visit: Palpitations, Severe Anemia Admit Date/Time: 05/10/25 15:19 Admit Provider: Teja Cabrera Attending Provider: Teja Cabrera Primary Care Provider: Mala Morrison [facility] Hospital Course: 74 years old female patient with past medical history of chronic pain disorder, 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 Work-up in the ED was positive for severe anemia with and H&H of 8.1 and 28. EKG showing sinus rhythm heart rate 70 without signs of coronary occlusion with negative troponins, PAC's mentioned in ED provider's notes. Vital signs were stable. No report of headache, chest pain, history of [place], shortness of breath, nausea, hematemesis, hematochezia or melena, but had episodes of darker colored diarrhea 2 weeks ago. Also reporting on and off anemia in the past, EGD, increased severity in heart burn and concerning for worsening of her hiatal hernia. The patient was admitted to the medical surgical floor with telemetry for severe symptomatic microcytic anemia and H&H trending. Confirm full code status but only with manual chest compressions. Mentioned recently status in the past [address] to cook and eat by herself. H&H remained stable , orhtostatic vital signs were positive and IVF bolus administered.. Iron studies completed with IV iron replacement given with recommendation for subsequent dose of IV ferric carboxymaltose 300 mg in 7 days in outpatient infusion, patient mentioning not tolerating oral iron. The patient improved clinically and was deemed safe to discharged home as per PT consult. The patient will follow-up with PCP within 7 days of discharge. Recommendation for PCP follow-up: Outpatient surgical referral for anemia work-up IV ferric carboxymaltose 300 mg in 7 days H&H trending H&H trending Outpatient nutrition referral Discussed with Dr. Cabrera Recommendations for Follow Up Recommended tests to be ordered by follow up provider: CBC ordered Home Meds and New Rx's Prescriptions: New pantoprazole 40 mg Tablet,Delayed Release (Dr/Ec) 40 mg PO BID@ Qty: 60 0RF acetaminophen 500 mg capsule 1,000 mg PO TID Qty: 60 0RF Continued cholecalciferol (vitamin D3) 10 mcg (400 unit) capsule 10 mcg PO DAILY vitamin E 400 UNIT capsule 400 unit PO DAILY ketoconazole 2 % cream See Rx Instructions .ROUTE .COMPLEX Qty: 60 11RF Dose Instruction: APPLY TOPICALLY ONCE DAILY FOR 3 MONTHS TO TOENAILS Rx Instructions: APPLY TOPICALLY ONCE DAILY FOR 3 MONTHS TO TOENAILS levothyroxine 50 mcg tablet 50 mcg PO DAILY Qty: 90 4RF ropinirole 0.5 mg tablet 0.5 mg PO QHS Qty: 90 6RF Rx Instructions: administer 1-3 hours before bedtime montelukast [Singulair] 10 mg tablet 10 mg PO DAILY Qty: 90 3RF aspirin [Aspir-81] 81 mg tablet,delayed release (DR/EC) 81 mg PO DAILY diphenhydramine HCl [Benadryl] 25 mg Capsule 50 mg PO Q6H PRN PRNQty: 0 0RF Held acetaminophen 650 MG tablet 2 tab PO BID PRN Hold Instructions: Resume on 05/25/25. Review with PCP Patient Comments: for arthritis Discontinued ibuprofen 600 mg tablet 600 mg PO TID PRNQty: 30 3RF Discharge Instructions Stand Alone Forms: Nursing Discharge Form Referrals: Mala Morrison MD, [place] [Primary Care Provider, Medicine] Referral Note: Follow-up within 7 days of discharge. Please call your PCP office to set up a follow up appointment. Activity:: Activity as Tolerated Equipment/Supplies:: No Equipment Needed Diet:: heart healthy Discharge Orders Discharge Orders: Discharge Order (Routine); Ordered 05/11/25 Ordered By: Clary Mirza Other Ambulatory Orders: Complete Blood Count w/Diff (Routine) Timeframe: [id number] Facility: [facility] - Location: Laboratory Outpatient - [facility] Ordered By: Clary Mirza DS: Summary Time Spent with Patient providing and/or coordinating discharge services: Greater than 30 minutes Status at Discharge Functional status at discharge: independent ambulation Overall status at discharge: patient is progressing back to baseline Mental Status: mental status grossly normal Speech and Movement: speech and movement normal Mood: congruent mood Affect: normal affect Quality:SDOH Health Related Social Needs: Health related social needs inadequate housing lonely/ isolated Exam Narrative Exam Narrative: 74 years old female patient appearing of stated age, appears well perfused today, improved skin color - pink , warm dry. Alert and oriented X 4, neurologically intact , S1, S2, regular sinusal rhythm HR 68 on telemetry PPP X 4 , abdomen is non-distended , soft and non tender, no CVA tenderness, moves upper and lower extremities with equal strength respectively. No CVA tenderness Psych Mental Status: mental status grossly normal Speech and Movement: speech and movement normal Mood: congruent mood Affect: normal affect DS: Data Vitals/I&O Vitals and I&O: Vital Signs Temperature 36.3 C L 05/11/25 07:32 Temperature Source Temporal Artery Scan 05/11/25 07:32 Pulse 63 05/11/25 11:15 Pulse Rhythm Regular 05/10/25 17:05 Pulse 67 05/10/25 16:10 Respiratory Rate 16 05/11/25 07:32 Respiratory Effort Normal, Non-Labored 05/10/25 17:05 Respiratory Depth Normal 05/10/25 17:05 Respiratory Pattern Normal 05/10/25 17:05 Blood Pressure 139/68 05/11/25 11:15 Blood Pressure Mean 93 05/11/25 07:32 Blood Pressure Position Supine 05/10/25 11:20 Pulse Oximetry 95 05/11/25 07:32 Oxygen Delivery Method Room Air 05/11/25 07:32 Oxygen Flow Rate 0 05/11/25 07:32 Pain Level 5 05/11/25 12:55 Intake & Output 05/10/25 05/11/25 05/11/25 23:59 11:59 23:59 Intake Total 770 / 770 Balance 770 / 770 Weight 72.8 kg 72.9 kg Intake: Oral 770 / 770 Other: Urine Color Yellow Urine Appearance Clear Clear Urine Odor Normal Comment Pt voided in toilet Data Completed and Pending Labs on day of discharge: Labs from last 24 hours 05/11/25 05/10/25 05/10/25 06:12 17:35 11:50 WBC 3.63 L RBC 3.79 L Hgb 8.1 L 8.4 L Hct 28.3 L 29.3 L MCV 75 L MCH 21.4 L MCHC 28.6 L RDW 17.4 H Plt Count 264 MPV 9.9 Sodium 140 Potassium 4.0 Chloride 105 Carbon Dioxide 26.6 Anion Gap 8.4 BUN 15 Creatinine 0.8 Est GFR (CKD-EPI 2020) 76.79 Glucose 103 Calcium 8.6 Iron 16 L TIBC 476 H Transferrin % Sat 3 L Vitamin B12 1031 H Folate 18.9 PFSH All Active Problems (Updated 05/10/25 @ 19:01 by Clary Mirza APRN) On deep vein thrombosis (DVT) prophylaxis (Acute) Symptomatic anemia (Acute) Atrial premature complexes (Acute) Lumbar pain (Acute) Internal derangement of left knee (Acute) Left knee DJD (Chronic) DEPO MEDROL: 01/07/2025; 07/12/2024 Bilateral knee pain (Acute) Toe pain, right (Acute) Toe pain, left (Acute) Tinea pedis (Acute) Onychomycosis (Acute) Pain, foot (Acute) Stress due to family tension (Acute) Cough (Acute) Genu recurvatum (Acute) Posterior left knee pain (Acute) Left shoulder pain (Acute) ILANA (renal artery stenosis) (Acute 09/11/15) Restless leg (Acute) 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) NATALIE on CPAP (Chronic 02/28/14) Low back pain (Chronic 07/10/04) neg xray; right leg pain Left foot pain (Chronic 02/23/18) Hypothyroidism (Chronic 09/21/13) Hypertrophy of nasal turbinates (Chronic 02/28/14) Hyperlipidemia (Chronic 03/31/12) Hearing disorder (Chronic) Esophagitis (Chronic 11/23/12) WITH MILDLY CONSTRICTING SCHATZKI'S RING; LARGE AXIAL HIATUS AND DIFUSE GASTRITIS Bilateral hand pain (Chronic 09/15/14) Allergic rhinitis due to pollen (Chronic 07/24/15) Chronic pain disorder (Chronic 07/31/17) 07/31/17 CONTROLLED SUBSTANCE AGREEMENT (TRAMADOL) Medical History Nail dystrophy Candidiasis (10/21/17) Depressive disorder Uterine leiomyoma Trigger thumb of right hand Trigger thumb of left hand S/p trigger release Depressive disorder Uterine leiomyoma partial hyst. and bladder suspension. 1990-abnl cells Rash 09/11/15 Weakness of both hips (10/21/17) Visual disturbance Thrombophlebitis Hypothyroid Surgical History Status post trigger finger release Left thumb DOS: 04/21/19 History of bladder surgery History of esophagogastroduodenoscopy History of wisdom tooth extraction Status post laparoscopic hysterectomy H/O wisdom tooth extraction S/P laparoscopic hysterectomy 08/11/90 partial History of bladder surgery 08/11/90 H/O esophagogastroduodenoscopy 08/11/12 mildly constricting Schatzki's Ring; large axial hiatus and difuse gastritis Vein Stripping left leg 2014 Nasal septoplasty 2013 Hysterectomy, Laproscopic (~1990) partial EGD - MAC (11/23/12) WITH MILDLY CONSTRICTING SCHATZKI'S RING; LARGE AXIAL HIATUS AND DIFUSE GASTRITIS Tooth extraction 1 wisdom tooth 06/06/11 all but 3 wisdom teeth Extraction of cataract 05/08/17 DR. CRUZ; LEFT EYE 05/22/17 DR. CRUZ; RIGHT EYE Bladder Surgery (~1989) Family History Mother , 90 Stroke Father , 72 Diabetes Heart disease Hyperlipidemia Stroke Pancreatic cancer Brother No problems noted. Maternal Grandfather , 86 Skin cancer Brain cancer Paternal Grandfather , 29 No problems noted. Maternal Grandmother , 39 Breast cancer Paternal Grandmother , 26 No problems noted. Son No problems noted. Daughter No problems noted. Social History Smoking/Tobacco Use Status: Former Tobacco Use tobacco type: cigarettes Quit Date: 08/11/04 Tobacco: How many years used: 45 Quit status: quit date established Second Hand Exposure: Yes Smoking risk assessment performed?: Yes Alcohol Intake: current Alcohol Intake frequency: holidays/special occasions only Alcohol type: wine and hard liquor Drug use: Never Substance use type: does not use Adopted: No Caregiver/Support person: No Household members: spouse Housing: house Number of Children: 6 number of grandchildren: 12 Communication Needs: Hard of Hearing and Corrective Lenses Education Level: college Details: 2 years of nursing school Do you need help understanding health information?: Rarely current occupation: retired seamstress Pets and animals: Yes Pets and animals: dog(s) Sexually active: No Do you think of yourself as: straight/heterosexual Current gender identity: female What is your relationship status?: How often do you talk on the phone with friends or family?: three or more times per week How often do you get together with friends or relatives?: twice per week How often do you attend hindu or taoist services?: 1-3 times per year Do you belong to any clubs or organized social groups?: no Panel score (0-1 are the most socially isolated patients): 2 What type of physical activity do you participate in: walking Duration: < 15 minutes/day Frequency: 5-6 times per week Debbie/Druze: Non jehovah's witness Special debbie needs: No Seatbelt use: always Helmet use: Yes Helmet use: sometimes Drive intox or ride w/intox superintendent drivers: No Firearms in home: Yes Firearms unloaded and locked: Yes Do you feel safe at home: Yes (unable to ask privately) Time Spent with Patient Time Spent with Patient: >85 minutes Time was spent: preparing to see the patient(eg.review tests), obtaining and/or reviewing separately otained hiistory, ordering medications,tests, procedures, referring, communicating with other health caregiver services home, indepentently interpreting results, counseling the patient, care coordination and other
--- NOTE | 2025-05-11 15:36 | INITIAL_ITS ---
Date of service: 05/11/25 Time of Service: 15:36 Care Management Initial Assmt Initial Assessment Reason for Hospitalization: Palpatations, severe anemia Functional Status/Living Situation Patient Presentation: Annie was sitting up on the edge of her bed when CM met with her. She stated that she is being discharged, which she was happy about. She stated that she lives in [facility] on her own (with her dog), but she has friends and family in the area who are suppportive. She reported that she is independent at baseline and still drives. Her daughter arrived during the conversation to drive her home. Annie stated that she does not require any services at home at this time. CM will continue to follow. Town of Residence: [facility] Resides with: Alone Significant Other/Family: Local Natural Supports: daughterEdith Employment Status: Retired Instrumental Activities of Daily Living (ADLs): Independent Medications Medication Management: No Issues/Barriers identified Advance Directives Advance Directives: Do you have an Advance Directive: Y , 14:21 AD On File at [facility]: Y 02/15/22, 14:21 Date Asked 05/10/25 05/10/25, 16:45 AD Date Reviewed 05/10/25 05/10/25, 11:10 COLST On File at [facility] COLST Date Scanned Code Status Resuscitation Status Full Code Insurance Coverage/Financial Issues Insurance: SARANYA Aetna [facility] supplement Care Team Visit Care Team Role Provider Type Clary Mirza APRN MD [facility] STAFF PHYSICIAN Mala Morrison MD, [place] Primary Care Provider , [facility] Emma Perez RDN, [facility] Other Providers JUNIOR PROGRAMMER ANALYST Davie Queen Other Providers OTHER Jose Baires RDN Other Providers JUNIOR PROGRAMMER ANALYST Teja Acuña MD Emergency Provider [facility] STAFF PHYSICIAN Teja Cabrera Admit Provider [facility] STAFF PHYSICIAN Attending Provider Discharge Potential Discharge Needs: PCP F/U Appt Anticipated Barriers to Discharge: None Identified Patient/Family Education Needs: Review discharge instructions, discuss Ask Me Three Transportation: Private vehicle Plan: Annie will return home today with no new services. Her daughter will drive her home via private vehicle. She will follow up with her PCP and discharge plan of care. CM will continue to follow. Social Determinants of Health Screening Social Determinants of health last assessed in clinic: 05/10/25 Will the Patient Participate in the Screening?: Unable to obtain Do you worry about having a steady place to live?: no Problems where you live: no known problems In the past 12 months, have you had to go without electric, gas, oil or water in your home?: no Has lack of transportation kept you from medical appointments or from doing things needed for daily living?: no Has anyone in your life made you feel unsafe or unsupported?: no How hard is it for you to pay for the very basics like food, housing, medical care, and heating? Would you say it is:: Not hard at all Do you want help finding or keeping work or a job?: I do not need or want help If for any reason you need help with day-to-day activities such as bathing, preparing meals, shopping, managing finances, etc., do you get the help you need?: I don?t need any help How often do you feel lonely or isolated from those around you?: Never Do you speak a language other than Cape Verdean at home?: No Does the patient want assistance with any of the above?: No PFSH All Active Problems (Updated 05/10/25 @ 19:01 by Clary Mirza APRN) On deep vein thrombosis (DVT) prophylaxis (Acute) Symptomatic anemia (Acute) Atrial premature complexes (Acute) Lumbar pain (Acute) Internal derangement of left knee (Acute) Left knee DJD (Chronic) DEPO MEDROL: 01/07/2025; 07/12/2024 Bilateral knee pain (Acute) Toe pain, right (Acute) Toe pain, left (Acute) Tinea pedis (Acute) Onychomycosis (Acute) Pain, foot (Acute) Stress due to family tension (Acute) Cough (Acute) Genu recurvatum (Acute) Posterior left knee pain (Acute) Left shoulder pain (Acute) ILANA (renal artery stenosis) (Acute 09/11/15) Restless leg (Acute) 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) NATALIE on CPAP (Chronic 02/28/14) Low back pain (Chronic 07/10/04) neg xray; right leg pain Left foot pain (Chronic 02/23/18) Hypothyroidism (Chronic 09/21/13) Hypertrophy of nasal turbinates (Chronic 02/28/14) Hyperlipidemia (Chronic 03/31/12) Hearing disorder (Chronic) Esophagitis (Chronic 11/23/12) WITH MILDLY CONSTRICTING SCHATZKI'S RING; LARGE AXIAL HIATUS AND DIFUSE GASTRITIS Bilateral hand pain (Chronic 09/15/14) Allergic rhinitis due to pollen (Chronic 07/24/15) Chronic pain disorder (Chronic 07/31/17) 07/31/17 CONTROLLED SUBSTANCE AGREEMENT (TRAMADOL) Medical History Nail dystrophy Candidiasis (10/21/17) Depressive disorder Uterine leiomyoma Trigger thumb of right hand Trigger thumb of left hand S/p trigger release Depressive disorder Uterine leiomyoma partial hyst. and bladder suspension. 1990-abnl cells Rash 09/11/15 Weakness of both hips (10/21/17) Visual disturbance Thrombophlebitis Hypothyroid Surgical History Status post trigger finger release Left thumb DOS: 04/21/19 History of bladder surgery History of esophagogastroduodenoscopy History of wisdom tooth extraction Status post laparoscopic hysterectomy H/O wisdom tooth extraction S/P laparoscopic hysterectomy 08/11/90 partial History of bladder surgery 08/11/90 H/O esophagogastroduodenoscopy 08/11/12 mildly constricting Schatzki's Ring; large axial hiatus and difuse gastritis Vein Stripping left leg 2014 Nasal septoplasty 2013 Hysterectomy, Laproscopic (~1990) partial EGD - MAC (11/23/12) WITH MILDLY CONSTRICTING SCHATZKI'S RING; LARGE AXIAL HIATUS AND DIFUSE GASTRITIS Tooth extraction 1 wisdom tooth 06/06/11 all but 3 wisdom teeth Extraction of cataract 05/08/17 DR. CRUZ; LEFT EYE 05/22/17 DR. CRUZ; RIGHT EYE Bladder Surgery (~1989) Family History Mother , 90 Stroke Father , 72 Diabetes Heart disease Hyperlipidemia Stroke Pancreatic cancer Brother No problems noted. Maternal Grandfather , 86 Skin cancer Brain cancer Paternal Grandfather , 29 No problems noted. Maternal Grandmother , 39 Breast cancer Paternal Grandmother , 26 No problems noted. Son No problems noted. Daughter No problems noted. Social History Smoking/Tobacco Use Status: Former Tobacco Use tobacco type: cigarettes Quit Date: 08/11/04 Tobacco: How many years used: 45 Quit status: quit date established Second Hand Exposure: Yes Smoking risk assessment performed?: Yes Alcohol Intake: current Alcohol Intake frequency: holidays/special occasions only Alcohol type: wine and hard liquor Drug use: Never Substance use type: does not use Adopted: No Caregiver/Support person: No Household members: spouse Housing: house Number of Children: 6 number of grandchildren: 12 Communication Needs: Hard of Hearing and Corrective Lenses Education Level: college Details: 2 years of nursing school Do you need help understanding health information?: Rarely current occupation: retired seamstress Pets and animals: Yes Pets and animals: dog(s) Sexually active: No Do you think of yourself as: straight/heterosexual Current gender identity: female What is your relationship status?: How often do you talk on the phone with friends or family?: three or more times per week How often do you get together with friends or relatives?: twice per week How often do you attend orthodoxy or anabaptist services?: 1-3 times per year Do you belong to any clubs or organized social groups?: no Panel score (0-1 are the most socially isolated patients): 2 What type of physical activity do you participate in: walking Duration: < 15 minutes/day Frequency: 5-6 times per week Debbie/Adventist: Non scientology Special debbie needs: No Seatbelt use: always Helmet use: Yes Helmet use: sometimes Drive intox or ride w/intox school bus driver/mechanic: No Firearms in home: Yes Firearms unloaded and locked: Yes Do you feel safe at home: Yes (unable to ask privately)
--- NOTE | 2025-05-11 17:25 | CMDISCH_ITS ---
Date of service: 05/11/25 Time of Service: 17:25 LACE Index Scoring Tool Questions: Length of Stay (in days): 1 Was the patient admitted via the E.D.?: Yes E.D. Visits: 0 Answers: Total Score: 4 Risk of Readmission: Low Risk Care Management Discharge Plan Reason for Hospitalization: symptomatic anemia Discharge Plan: Annie returned home with no new services. Her daughter drove her home via private vehicle. She will follow up with her PCP and discharge plan of care. She was happy to be going home. Patient/Family Education Needs: Review discharge instructions and limitations, discussion of self care needs including ask me three. SDOH Health Related Social Needs: Health related social needs inadequate housing lonely/ isolated
[2025-05-14 20:51] LABS: B. miyamotoi PCR Negative (Negative); Babesia divergens/MO-1 Negative (Negative); Ehrlichia muris eauclairensis Negative (Negative)
== END 2025-05-11 14:59 | disposition home or self-care (01) ==
LOC: ER 16:45 → MS 05-11 06:35
PROVIDERS: Admitting Provider Family Medicine; Emergency Provider Emergency Medicine; PCP Family Medicine; Responsible Provider Nurse Practitioner Acute Care; Visit Provider Family Medicine
DX: D50.9 Iron deficiency anemia, unspecified (principal); I49.1 Atrial premature depolarization; E78.5 Hyperlipidemia, unspecified; G89.4 Chronic pain syndrome; Z79.899 Other long term (current) drug therapy; E03.9 Hypothyroidism, unspecified; R42 Dizziness and giddiness; M54.50 Low back pain, unspecified; G25.81 Restless legs syndrome; G47.33 Obstructive sleep apnea (adult) (pediatric); M17.12 Unilateral primary osteoarthritis, left knee; I70.1 Atherosclerosis of renal artery; B35.1 Tinea unguium; F32.A Depression, unspecified; Z79.82 Long term (current) use of aspirin; Z59.10 Inadequate housing, unspecified; R45.89 Other symptoms and signs involving emotional state
CPT/HCPCS: 00123; 36415; 80048; 85027; 87798; 93005; 96365; 97161; 97530; 99285; 82607; 82746; 83540; 83550; 83735; 84443; 84484; 85014; 85018; 85025; 86618; 93010; 99223; 99239; G0378; J1439; J3490

== ENCOUNTER 2025-05-16 03:38 | Outpatient (CLI) | payer MEDICARE, SELFPAY ==
[2025-05-16 10:14] LABS: Abs Immature Grans 0.02 10^3/uL (0.0-0.06); HCT 31.6 % (36.0-46.0); HGB 8.9 g/dL (11.2-15.7); Immature Grans % 0.3 %; MCH 22.6 pg (27.0-33.0); MCHC 28.2 % (32.0-36.0); MCV 80 fL (80-95); MPV 9.4 fL (8.0-11.0); Platelet Count 365 10^3/uL (130-400); RBC 3.94 10^6/uL (3.93-5.22); RDW 20.8 % (11.7-14.6); RDW-SD 49.6 fL; WBC 6.09 10^3/uL (4.4-10.8)
[2025-05-16 10:44] LABS: Anisocytosis 2+; Hypochromasia 2+; Microcytosis 2+; Polychromasia Present
== END 2025-05-16 03:39 | disposition home or self-care (01) ==
LOC: LBO 03:38
PROVIDERS: PCP Family Medicine; Visit Provider Nurse Practitioner Acute Care
DX: D64.9 Anemia, unspecified (principal)
CPT/HCPCS: 36415; 85025

== ENCOUNTER → 2025-05-20 10:24 | Outpatient (BNVA) | payer MEDICARE, SELFPAY | PROVIDERS: PCP Family Medicine; Referring Provider Family Medicine; Visit Provider Physician Assistant | DX: M17.12 Unilateral primary osteoarthritis, left knee (principal) | CPT/HCPCS: 20610; J1010 ==

== ENCOUNTER 2025-05-26 08:08 | Outpatient (CLI) | payer MEDICARE, SELFPAY ==
[2025-05-26 14:01] LABS: HCT 35.6 % (36.0-46.0); HGB 10.5 g/dL (11.2-15.7); MCH 25.2 pg (27.0-33.0); MCHC 29.5 % (32.0-36.0); MCV 85 fL (80-95); MPV 9.3 fL (8.0-11.0); Platelet Count 316 10^3/uL (130-400); RBC 4.17 10^6/uL (3.93-5.22); RDW 27.6 % (11.7-14.6); RDW-SD 81.5 fL; WBC 4.12 10^3/uL (4.4-10.8)
[2025-05-26 14:21] LABS: Iron 127 ug/dL (50-170)
[2025-05-26 14:31] LABS: Ferritin 374 ng/mL (8-252)
== END 2025-05-26 08:09 | disposition home or self-care (01) ==
PROVIDERS: PCP Family Medicine; Visit Provider Family Medicine
DX: D64.9 Anemia, unspecified (principal)
CPT/HCPCS: 36415; 85027; 82728; 83540

== ENCOUNTER → 2025-06-06 11:25 | Outpatient (BNVA) | payer MEDICARE, SELFPAY | PROVIDERS: PCP Family Medicine; Referring Provider Family Medicine; Visit Provider Student in an Organized Health Care Education/Training Program | DX: D50.9 Iron deficiency anemia, unspecified (principal) | CPT/HCPCS: 99213 ==

== ENCOUNTER 2025-06-08 02:23 | Outpatient (RCR) | payer MEDICARE, SELFPAY ==
[2025-06-01] MEDS: Normal Saline Flush 10 ML SYR IVP (13:04)
[2025-06-01] MEDS: SODIUM FER. GLUC./SUC. 125 MG in Normal Saline 100 ML 110 MG IVPB (13:21)
[2025-06-08] MEDS: SODIUM FER. GLUC./SUC. 125 MG in Normal Saline 100 ML 110 MG IVPB (13:26)
[2025-06-08] MEDS: Normal Saline Flush 10 ML SYR IVP (13:26)
== END 2025-06-10 23:59 | disposition home or self-care (01) ==
LOC: INF 02:23
PROVIDERS: PCP Family Medicine; Visit Provider Family Medicine
DX: D50.9 Iron deficiency anemia, unspecified (principal)
CPT/HCPCS: 96365; J2916

== ENCOUNTER 2025-06-22 01:37 | Outpatient (RCR) | payer MEDICARE, SELFPAY ==
[2025-06-15] MEDS: SODIUM FER. GLUC./SUC. 125 MG in Normal Saline 100 ML 110 MG IVPB (13:29)
[2025-06-15] MEDS: Normal Saline Flush 10 ML SYR IVP (14:19)
[2025-06-22] MEDS: SODIUM FER. GLUC./SUC. 125 MG in Normal Saline 100 ML 110 MG IVPB (13:25)
[2025-06-22] MEDS: Normal Saline Flush 10 ML SYR IVP (13:30)
== END 2025-07-10 23:59 | disposition home or self-care (01) ==
LOC: INF 01:37
PROVIDERS: PCP Family Medicine; Visit Provider Family Medicine
DX: D50.9 Iron deficiency anemia, unspecified (principal)
CPT/HCPCS: 96365; J2916

== ENCOUNTER 2025-06-27 02:05 | Outpatient (CLI) | payer MEDICARE, SELFPAY ==
[2025-06-27 13:10] LABS: HCT 38.4 % (36.0-46.0); HGB 12.0 g/dL (11.2-15.7); MCH 28.2 pg (27.0-33.0); MCHC 31.3 % (32.0-36.0); MCV 90 fL (80-95); MPV 9.2 fL (8.0-11.0); Platelet Count 216 10^3/uL (130-400); RBC 4.26 10^6/uL (3.93-5.22); RDW-SD 74.8 fL; WBC 5.22 10^3/uL (4.4-10.8)
[2025-06-27 13:27] LABS: RDW 24.1 % (11.7-14.6)
[2025-06-27 14:13] LABS: Ferritin 255 ng/mL (7-271)
[2025-06-27 15:12] LABS: Iron 88 ug/dL (50-170)
== END 2025-06-27 02:06 | disposition home or self-care (01) ==
LOC: LBO 02:05
PROVIDERS: PCP Family Medicine; Visit Provider Family Medicine
DX: D64.9 Anemia, unspecified (principal)
CPT/HCPCS: 36415; 85027; 82728; 83540

== ENCOUNTER 2025-07-01 10:02 | Day surgery (SDC) | payer MEDICARE, SELFPAY ==
[2025-07-01 10:30] VITALS: BP 129/78; PULSE 68; RESP 16; TEMP 36.3; O2SAT 97
[2025-07-01] MEDS: Lactated Ringers 1,000 ML 80 ML IV (10:39)
--- NOTE | 2025-07-01 12:03 | W.ANESPRE ---
General Info Date of Service Date Performed: 07/01/25 Height: 5 ft 3.5 in Weight: 74.9 kg Body Mass Index (BMI): 28.8 Surgical Procedure: Operation Date: 07/01/25 11:20 Proposed Procedure Side Surgeon p Colonoscopy/Gastroscopy Luh Bernard MD Meds Allergies and Home Medications Allergies Allergy/AdvReac Type Severity Reaction Status Date / Time Estrogens Allergy Intermediate swollen, Verified 06/29/25 09:27 itchy vulva house dust Allergy Intermediate SNEEZING, Verified 06/29/25 09:27 WATERY EYES Sulfa (Sulfonamide Allergy Intermediate HIVES, Verified 06/29/25 09:27 Antibiotics) ITCHING trimethoprim Allergy Intermediate Hives Verified 06/29/25 09:27 nickel Allergy Unknown SWELLING,IT Verified 06/29/25 09:27 PARAS celecoxib (From Celebrex) AdvReac Intermediate other Verified 06/29/25 09:27 oxycodone AdvReac Intermediate Headache Verified 06/29/25 09:27 ranitidine AdvReac Mild Diarrhea Verified 06/29/25 09:27 influenza virus vaccine, AdvReac body Verified 06/29/25 09:27 specific aches, fatigue cedar oil Allergy Severe Hives Uncoded 06/29/25 09:27 pollen AdvReac environmental Uncoded 06/29/25 09:27 allergies Home Medication Medication Instructions Recorded vitamin E 268 mg (400 unit) capsule 400 unit PO DAILY 10/16/12 acetaminophen 650 mg 2 tab PO BID PRN 03/14/14 tablet,extended release Held on 05/11/25. Instructions: Resume on 05/25/25. Review with PCP diphenhydramine HCl 25 mg capsule 50 mg (2 x 25 mg) PO Q6H PRN PRN 05/09/18 (Benadryl) #0 caps aspirin 81 mg tablet,delayed 81 mg PO DAILY 12/25/20 release (Aspir-) cholecalciferol (vitamin D3) 10 10 mcg PO DAILY 08/13/21 mcg (400 unit) capsule ketoconazole 2 % topical cream See Rx Instructions .Route 09/23/24 .COMPLEX #60 grams levothyroxine 50 mcg tablet 50 mcg PO DAILY #90 tab-caps 02/27/25 ropinirole 0.5 mg tablet 0.5 mg PO QHS #90 tabs 02/27/25 montelukast 10 mg tablet 10 mg PO DAILY #90 tab-caps 04/18/25 (Singulair) acetaminophen 500 mg capsule 1,000 mg (2 x 500 mg) PO TID #60 05/11/25 caps pantoprazole 40 mg tablet,delayed 40 mg PO DAILY #90 tabs 06/21/25 release Current Visit Medications: Current Medications Generic Name Dose Route Start Last Admin Trade Name Freq PRN Reason Stop Dose Admin Ringer's Solution 1,000 mls @ 80 mls/hr 07/01/25 06:00 07/01/25 10:39 IV 07/01/25 23:59 80 mls/hr INFUSION LUCRECIA Administration IV Miscellaneous Supplies 1 each 07/01/25 06:00 Iv Access IV 07/01/25 23:59 DIRECTED LUCRECIA Sodium Chloride 0 ml 07/01/25 06:00 Normal Saline Flush 10 Ml Syr IV 07/01/25 23:59 PRN PRN Sodium Chloride 0 ml 07/01/25 06:00 Normal Saline 10 Ml Vial IJ 07/01/25 23:59 DIRECTED PRN Sterile Water 0 ml 07/01/25 06:00 Water,Injection,Sterile 10 Ml Vial IJ 07/01/25 23:59 DIRECTED PRN PFSH Active Problems Active Problems: Problem Status Onset Code Iron deficiency anemia Acute D50.9 Symptomatic anemia Acute D64.9 Lumbar pain Acute M54.50 Internal derangement of left knee Acute M23.92 Left knee DJD Chronic M17.12 Bilateral knee pain Acute M25.561, M25.562 Toe pain, right Acute M79.674 Toe pain, left Acute M79.675 Tinea pedis Acute B35.3 Onychomycosis Acute B35.1 Pain, foot Acute M79.673 Stress due to family tension Acute Z63.8 Cough Acute R05.9 Genu recurvatum Acute M21.869 Posterior left knee pain Acute M25.562 Left shoulder pain Acute M25.512 ILANA (renal artery stenosis) Acute 09/11/15 I70.1 Restless leg Acute Varicose vein of leg Chronic 09/11/15 I83.90 NATALIE on CPAP Chronic 02/28/14 G47.33, Z99.89 Low back pain Chronic 07/10/04 M54.5 Left foot pain Chronic 02/23/18 M79.672 Hypothyroidism Chronic 09/21/13 E03.9 Hypertrophy of nasal turbinates Chronic 02/28/14 J34.3 Hyperlipidemia Chronic 03/31/12 E78.5 Hearing disorder Chronic H91.90 Esophagitis Chronic 11/23/12 K20.9 Bilateral hand pain Chronic 09/15/14 M79.641, M79.642 Allergic rhinitis due to pollen Chronic 07/24/15 J30.1 Chronic pain disorder Chronic 07/31/17 G89.4 Medical History Medical History Nail dystrophy Candidiasis (10/21/17) Depressive disorder Uterine leiomyoma Trigger thumb of right hand Trigger thumb of left hand S/p trigger release Depressive disorder Uterine leiomyoma partial hyst. and bladder suspension. 1990-abnl cells Rash 09/11/15 Weakness of both hips (10/21/17) Visual disturbance Thrombophlebitis Hypothyroid Surgical History Surgical History Status post trigger finger release Left thumb DOS: 04/21/19 History of bladder surgery History of esophagogastroduodenoscopy History of wisdom tooth extraction Status post laparoscopic hysterectomy H/O wisdom tooth extraction S/P laparoscopic hysterectomy 08/11/90 partial History of bladder surgery 08/11/90 H/O esophagogastroduodenoscopy 08/11/12 mildly constricting Schatzki's Ring; large axial hiatus and difuse gastritis Vein Stripping left leg 2014 Nasal septoplasty 2013 Hysterectomy, Laproscopic (~1990) partial EGD - MAC (11/23/12) WITH MILDLY CONSTRICTING SCHATZKI'S RING; LARGE AXIAL HIATUS AND DIFUSE GASTRITIS Tooth extraction 1 wisdom tooth 06/06/11 all but 3 wisdom teeth Extraction of cataract 05/08/17 DR. CRUZ; LEFT EYE 05/22/17 DR. CRUZ; RIGHT EYE Bladder Surgery (~1989) Tobacco Smoking/Tobacco Use Status: Former Tobacco Use Passive smoking exposure: Yes Second hand exposure: Yes Alcohol Alcohol Intake: current Alcohol intake frequency: holidays/special occasions only Alcohol type: wine and hard liquor Substance Use Substance use: Never Substance use type: does not use Vital Signs and Lab Results Vital Signs Most Recent Vital Signs in EMR: Most Recent Vital Signs Temp Pulse Resp BP Pulse Ox 36.3 C L 68 16 129/78 97 07/01/25 10:30 07/01/25 10:30 07/01/25 10:30 07/01/25 10:30 07/01/25 10:30 Lab Results Complete Blood Count: WBC, (4.4-10.8) 5.22 10^3/uL 06/27/25, 12:45 RBC, (3.93-5.22) 4.26 10^6/uL 06/27/25, 12:45 Hgb, (11.2-15.7) 12.0 g/dL 06/27/25, 12:45 Hct, (36.0-46.0) 38.4 % 06/27/25, 12:45 Plt Count, (130-400) 216 10^3/uL 06/27/25, 12:45 Imaging and Studies Imaging and Studies Study information below may be from another EMR and interpreted by another provider. Please see original notes in EMR for more complete details. EKG Summary: EKG PATIENT NAME: Annie Riojas UNIT #: [id number] ORDERING PROVIDER: Teja Acuña M.D. PRIMARY CARE PROVIDER: MALVIN ANDINO MD, DC DATE/TIME OF SERVICE: 05/10/25 1136 : 1950 PERFORMING LOCATION: ID APPROVED REPORT Exam: Resting ECG Reason for Exam: Irregular Heartbeat Patient Location: E HR:70 bpm ECG Measurements Heart Rate 70 AXIS DC 163 P -10 QRSd 75 QRS -19 QT 418 T2 QTc 417 Conclusion Sinus rhythm...normal P axis, V-rate 60- 99 Atrial premature complexes in couplets...pair SV complexes w/ short R-R No Occlusion NJ <Electronically signed by Teja Acuña M.D. in [place]> E-Sign Date: 05/10/25 E-Sign Time: 1557 ADDENDUM APPROVED REPORT Exam: Resting ECG Reason for Exam: Irregular Heartbeat Patient Location: E HR:70 bpm ECG Measurements Heart Rate 70 AXIS DC 163 P -10 QRSd 75 QRS -19 QT 418 T2 QTc 417 Conclusion Sinus rhythm...normal P axis, V-rate 60- 99 Atrial premature complexes in couplets...pair SV complexes w/ short R-R No Occlusion NJ I have reviewed and I agree with the emergency room physician's ECG interpretation. Electronically signed by: <Electronically signed by Lisa Hernandez M.D. in [place]> 05/12/25 0810 Cosigned by: Anesthesia Assessment and Plan Anesthesia History Personal History: No History of Anesthesia Complications Family History: No Family History of Anesthesia Complications Exercise Tolerance Exercise Tolerance: Metabolic Equivalents>4 Pertinent Negatives Pertinent Negatives: No Major Cardiovascular Symptoms or Complaints, No Major Pulmonary Symptoms or Complaints and No History of CVA/TIA Cardiac & Pulmonary Exam Cardiac Exam: Normal S1/S2 Heart Sounds Pulmonary Exam: Clear Bilateral Breath Sounds Implantable Cardiac Device Does patient have a Pacemaker or an ICD?: No Airway Exam Known Difficult Airway: No Mallampati Class: 2 Mouth Opening: Normal (> 3cm) Thyromental Distance: Greater than 3 cm Neck Range of Motion: Full ROM Neck Circumference: Normal Teeth Condition: Edentulous ASA Classification ASA Score: ASA 3 Emergency Case?: No NPO Status NPO Status: NPO Clears >2 hours, Solids >8 hours Anesthesia Plan Resuscitation Status: Full Code Anesthesia Technique: General Anesthesia Airway Planned: Natural Airway Monitors Used: Standard Monitors
[2025-07-01 12:04] VITALS: BMI 28.8
--- NOTE | 2025-07-01 12:18 | BOWEL_PTH ---
PATIENT: Annie Riojas LOC: [facility] U#:[id number] AGE/SX: 75/F ROOM: RE07/01/[address]: Luh Bernard : 1950 BED: DIS: 07/01/2025 SPEC #: [id number] RECD: 07/01/25 18:06 STATUS: VANGIEArjun EVANS #: [id number] TANYA: 07/01/25 12:[address]: Luh Bernard DEPT: Surgical Specimen RECD BY: Gwen Valdez ENTERED: 07/01/25 18:06 SP TYPE: Bowel OTHR DR: Mala Morrison MD, DC Tissues: 1 - BIOPSY BOWEL 2 - STOMACH BIOPSY 3 - ESOPHAGUS BIOPSY 4 - BIOPSY BOWEL Procedures: GROSS AND MICRO LEVEL 4 Comments: [id number]
[2025-07-01 12:51] VITALS: BP 96/52; PULSE 57; RESP 12; TEMP 36.2; O2SAT 96
--- NOTE | 2025-07-01 12:55 | W.PM.DSUDISC ---
Date of service: 07/01/25 Discharge Plan Disposition Patient Disposition: Home Condition: Good Discharge Details Reason For Visit: Anemia, Dysphagia Attending Provider: Luh Bernard Primary Care Provider: Mala Morrison Recommendations for Follow Up Recommended tests to be ordered by follow up provider: Follow up pathology Home Meds and New Rx's Prescriptions: Continued cholecalciferol (vitamin D3) 10 mcg (400 unit) capsule 10 mcg PO DAILY vitamin E 400 UNIT capsule 400 unit PO DAILY acetaminophen 650 MG tablet 2 tab PO BID PRN Patient Comments: for arthritis ketoconazole 2 % cream See Rx Instructions .ROUTE .COMPLEX Qty: 60 11RF Dose Instruction: APPLY TOPICALLY ONCE DAILY FOR 3 MONTHS TO TOENAILS Rx Instructions: APPLY TOPICALLY ONCE DAILY FOR 3 MONTHS TO TOENAILS levothyroxine 50 mcg tablet 50 mcg PO DAILY Qty: 90 4RF ropinirole 0.5 mg tablet 0.5 mg PO QHS Qty: 90 6RF Rx Instructions: administer 1-3 hours before bedtime montelukast [Singulair] 10 mg tablet 10 mg PO DAILY Qty: 90 3RF pantoprazole 40 mg tablet,delayed release (DR/EC) 40 mg PO DAILY Qty: 90 5RF aspirin [Aspir-81] 81 mg tablet,delayed release (DR/EC) 81 mg PO DAILY diphenhydramine HCl [Benadryl] 25 mg Capsule 50 mg PO Q6H PRN PRNQty: 0 0RF acetaminophen 500 mg capsule 1,000 mg PO TID Qty: 60 0RF Discharge Instructions Instructions: Colon polyps, Diverticulosis (DC) Additional Instructions: Your colonoscopy and upper endoscopy went well today. On your upper endoscopy you did have a large hiatal hernia. Some routine biopsies were also performed. For your colonoscopy you had one small polyp that was removed and will be sent to pathology. You also had diverticulosis or small outpouchings of the colon. We will contact you once all your pathology returns with results. Please contact the surgery office it you have any questions or concerns. 1. If tolerated, consume a soft, low fiber diet for 1-2 days. [address] Do not drive, drink alcohol, operate machinery, make critical decisions, or do activities that require coordination or balance for 24 hours. 3. Because air was put into your colon during the procedure, expelling air from your rectum (passing gas or farting) is normal. 4. You may not have a bowel movement for 1-3 days because of the colonoscopy prep. This is normal. 5. Go directly to the emergency room if you notice any of the following: Develop chills (warm to touch), or if you have a thermometer and your temperature is above 101 Difficulty breathing or difficultly swallowing Persistent vomiting Severe abdominal pain, other than gas cramps Severe chest pain Black, tarry stools Any bleeding – exceeding one tablespoon 6. Call your physician if the site where your intravenous was started becomes red, swollen, painful, and warm to touch. 7. Your physician has reviewed your pre-procedure medications. Please continue to take those medications as previously ordered. You will be given specific information/education regarding any changes to your medications before leaving. Stand Alone Forms: Portal Information Activity:: Activity as Tolerated Diet:: As Tolerated Discharge Orders Discharge Orders: Discharge Order (Routine); Ordered 07/01/25 Ordered By: Luh Bernard
--- NOTE | 2025-07-01 12:57 | W.ANESPOSTOP ---
Postoperative Evaluation Date, Time and Location Date Performed: 07/01/25 Time Performed: 12:57 Patient Location: Day Surgery Unit Vital Signs Most Recent Imported Vital Signs: Most Recent Vital Signs Temp Pulse Resp BP Pulse Ox 36.2 C L 57 L 12 96/52 L 96 07/01/25 12:51 07/01/25 12:51 07/01/25 12:51 07/01/25 12:51 07/01/25 12:51 Pain Score Most Recent Pain Score: Most Recent Pain Score Pain Level 0 07/01/25 12:51 Assessment Mental Status: Awake (Alert & Oriented to Patient Baseline) Airway and Respiratory Function: Patent airway with normal (patient baseline) respiratory exam Cardiovascular Function: Hemodynamically Stable Hydration Status: Adequately Hydrated Nausea & Vomiting: No Nausea or Vomiting Pain: Pt. Denies Any Pain Peripheral Nerve Block: Patient did not receive a nerve block
--- NOTE | 2025-07-01 12:58 | W.PM.ENDDOP ---
Date of service: 07/01/25 Time of Service: 12:58 Endoscopy Report DATE OF PROCEDURE: 07/01/25 PRE-OP DIAGNOSIS: Anemia, Dysphagia POST-OP DIAGNOSIS: other (Hiatal hernia) PROCEDURE: Upper endoscopy with biopsy. SURGEON: Luh Bernard ANESTHESIA TYPE: General:No Airway ESTIMATED BLOOD LOSS: 1 PATHOLOGY: other (Biopsy of duodenum, antrum, GE junction) COMPLICATIONS: None DISPOSITION: PACU INDICATIONS: Patient is a 75 yo female who presented with anemia and dysphagia. An upper endoscopy and colonoscopy was discussed with her and consent obtained prior to the procedure. FINDINGS: Evidence of large hiatal hernia. Cold forcep biopsy of duodenum, antrum and GE junction performed. PROCEDURE DESCRIPTION: After adequate sedation, the upper endoscope was inserted and advanced in the duodenum under direct visualization. The scope was withdrawn and the mucosa inspected. The duodenum appeared normal and a cold forcep biopsy was performed. The stomach was normal with no evidence of ulcerations or erosions. The antrum area was biopsied and also checked for H. pylori. Retroflexion view in the stomach showed a large hiatal hernia. At the lower esophagus Z line area, this was inspected and noted to be normal. A cold forcep biopsy of the GE junction was performed. No evidence of Seals’s esophagus or strictures. Otherwise, the esophagus was normal. The scope was completely withdrawn from the patient. The patient tolerated the procedure well with no immediate complications.
--- NOTE | 2025-07-01 13:02 | COLE_ITS ---
Date of service: 07/01/25 Time of Service: 13:02 Colonoscopy Report Date of procedure: 07/01/25 Pre-op diagnosis general: Anemia Post-op diagnosis procedure note: other (Colon polyp, diverticulosis ) Procedure: Colonoscopy with polypectomy Surgeon: Luh Bernard Anesthesia Type: General:No Airway Estimated blood loss (mL): 1 Pathology: other (Colon polyp at 50cm ) Complications: None Disposition: PACU Indications: Patient is a 75 yo female who presented with anemia and dysphagia. An upper endoscopy and colonoscopy was discussed with her and consent obtained prior to the procedure. Prep: Miralax/Dulcolax Procedure Start Time: 12:16 Procedure End Time: 12:45 Retraction Time: 9 Findings: Evidence of mainly rectosigmoid diverticulosis and some scattered throughout the remainder of the colon. Small colon polyp at 50cm removed with cold forceps. Procedure Description: The patient was brought to the endoscopy suite and placed in the left lateral decubitus position. After induction of IV sedation, a digital rectal exam was performed.. Digital exam was normal. The colonoscope was then passed to the cecum without difficulty. Cecal intubation was confirmed by the identification of the appendiceal orifice and the ileocecal valve. Upon withdrawing the colonoscope, all mucosal surfaces were inspected. The prep was noted to be adequate. At 50cm there was a small polyp, which was removed using cold forceps in its entirety. Specimen was retrieved for pathological analysis. There was no other evidence of mucosal abnormality, polyp or cancer. There was evidence of mainly rectosigmoid diverticulosis and some scattered throughout the remainder of the colon as well. Retroflexion in the rectum was unremarkable.The patient tolerated the procedure well with no complications. Postoperatively, the patient was transferred to the recovery room in stable condition. [place] Bowel Prep [place] Bowel Prep Right Colon: 3 Left Colon: 3 Transverse Colon: 3 Total Score: 9
[2025-07-01 13:20] VITALS: BP 115/74; PULSE 73; RESP 14; TEMP 36; O2SAT 98
== END 2025-07-01 13:50 | disposition home or self-care (01) ==
PROVIDERS: PCP Family Medicine; Visit Provider Student in an Organized Health Care Education/Training Program
PROC: (CPT 43239; principal; 2025-07-01 11:15)
DX: D64.9 Anemia, unspecified (principal); R13.10 Dysphagia, unspecified; K44.9 Diaphragmatic hernia without obstruction or gangrene; D12.5 Benign neoplasm of sigmoid colon; K57.30 Diverticulosis of large intestine without perforation or abscess without bleeding; K31.9 Disease of stomach and duodenum, unspecified; K22.9 Disease of esophagus, unspecified
CPT/HCPCS: 43239; 45380; 88305; J2003; J2371; J2704